=== PATIENT | female | born 1955 | race Caucasian/White ===

== ENCOUNTER → 2016-08-24 | Outpatient (CLI) | payer OTHER | LOC: WI 14:09 | PROVIDERS: ATTEND Internal Medicine | DX: C50.411 Malignant neoplasm of upper-outer quadrant of right female breast (principal) | CPT/HCPCS: 76642; G0206 ==

== ENCOUNTER 2016-12-25 23:03 | Emergency (ER) | payer OTHER ==
[2016-12-26 01:14] LABS: VENOUS BLOOD BASE EXCESS 0.7 mmol/L; VENOUS BLOOD HCO3 27.3 mmol/L (20-32); VENOUS BLOOD PCO2 51.2 mmHg (35-63); VENOUS BLOOD PH 7.34 (7.30-7.42)
[2016-12-26] MEDS ORDERED: NORMAL SALINE 1000 ML 1,000 ML IV ONE (01:16)
[2016-12-26] MEDS ORDERED: INSULIN LISPRO 100 UNIT/ML 3 ML VIAL SUBCUT ONE (01:16)
[2016-12-26 01:20] LABS: ABSOLUTE BASOPHILS # (AUTO) 0.1 10^3/uL (0.0-0.2); ABSOLUTE EOSINOPHILS # (AUTO) 0.2 10^3/uL (0.0-0.6); ABSOLUTE LYMPHOCYTES (AUTO) 4.1 10^3/uL (0.5-4.7); ABSOLUTE MONOCYTES (AUTO) 0.7 10^3/uL (0.1-1.4); BASOPHILS % (AUTO) 0.8 % (0-2); EOSINOPHILS % (AUTO) 2.1 % (0-6); HEMATOCRIT 41.4 % (36.0-47.0); HEMOGLOBIN 14.5 g/dL (12.0-15.5); HGB HCT DIFFERENCE 2.1; LYMPHOCYTES % (AUTO) 44.9 % (13-45); MEAN CORPUSCULAR HEMOGLOBIN 33.1 pg (27.0-33.4); MEAN CORPUSCULAR VOLUME 95 fl (80-97); MONOCYTES % (AUTO) 7.9 % (3-13); RED BLOOD COUNT 4.37 10^6/uL (3.72-5.28); RED CELL DISTRIBUTION WIDTH 12.9 % (11.5-14.0); SEGMENTED NEUTROPHILS % (AUTO) 44.3 % (42-78); WHITE BLOOD COUNT 9.1 10^3/uL (4.0-10.5)
[2016-12-26 01:21] LABS: APPEARANCE,URINE CLEAR; BILIRUBIN,URINE NEGATIVE (NEGATIVE); GLUCOSE, URINE >=500 mg/dL (NEGATIVE); KETONES,URINE NEGATIVE (NEGATIVE); LEUKOCYTE ESTERASE,URINE NEGATIVE (NEGATIVE); NITRITE,URINE NEGATIVE (NEGATIVE); PROTEIN,URINE NEGATIVE (NEGATIVE); URINE SPECIFIC GRAVITY 1.007; UROBILINOGEN,URINE NEGATIVE mg/dL (<2.0)
[2016-12-26 01:28] LABS: ANION GAP 14 (5-19); BLOOD UREA NITROGEN 14 mg/dL (7-20); CALCIUM 10.1 mg/dL (8.4-10.2); CARBON DIOXIDE 26 mmol/L (22-30); CHLORIDE 103 mmol/L (98-107); CREATININE RESULT 0.76 mg/dL (0.52-1.25); GLUCOSE 376 mg/dL (75-110); POTASSIUM 3.7 mmol/L (3.6-5.0); SODIUM 142.5 mmol/L (137-145)
--- NOTE | 2016-12-26 01:32 | ER Document Report ---
ED General - General Chief Complaint: High Blood Sugar Stated Complaint: BLOOD SUGAR PROBLEM Time Seen by Provider: 12/26/16 00:22 Notes: Patient is a 61-year-old female with a past medical history of insulin- dependent type 2 diabetes who presents with concerns about elevated blood sugars at home. Patient reports that her blood sugars have been higher than 500 for the past 2 days. She was seen by her primary care doctor yesterday who is apparently planning on transitioning her from Victoza to NovoLog and glipizide but has not yet made this change. Patient reports polyuria and polydipsia as well as generalized fatigue for the past 1 month. She has not noted that anything seems to improve or worsen her symptoms. She has never had diabetic ketoacidosis or required admission to the hospital for her diabetes. She denies any chest pain or infectious symptoms. TRAVEL OUTSIDE OF THE [place] IN LAST 30 DAYS: No - Related Data Allergies/Adverse Reactions: No Known Allergies Allergy (Verified 12/25/16 23:35) Past Medical History - General Information source: Patient - Social History Smoking Status: Never Smoker Frequency of alcohol use: None Drug Abuse: None Lives with: Spouse/Significant other Family History: Reviewed & Not Pertinent - Past Medical History Cardiac Medical History: Reports: Hx Coronary Artery Disease - cholesterol, Hx Hypercholesterolemia, Hx Hypertension Pulmonary Medical History: Reports: Hx Asthma, Hx Bronchitis - 2 yrs ago, Hx Pneumonia - x2, last time 2009 Neurological Medical History: Reports: Hx Migraine, Hx Seizures - None for 3 yrs Endocrine Medical History: Reports: Hx Diabetes Mellitus Type 2 Renal/ Medical History: Denies: Hx Peritoneal Dialysis Psychiatric Medical History: Reports: Hx Depression Past Surgical History: Reports: Hx Breast Surgery - RIGHT, Hx Cardiac Catheterization, Hx Cholecystectomy, Hx Hysterectomy, Hx Orthopedic Surgery - NECK - Immunizations Immunizations up to date: Yes Hx Diphtheria, Pertussis, Tetanus Vaccination: Yes - Tetanus only 2009 Review of Systems - Review of Systems Notes: Constitutional: Negative for fever. HENT: Negative for sore throat. Eyes: Negative for visual changes. Cardiovascular: Negative for chest pain. Respiratory: Negative for shortness of breath. Gastrointestinal: Negative for abdominal pain, vomiting or diarrhea. Genitourinary: Negative for dysuria. Musculoskeletal: Negative for back pain. Skin: Negative for rash. Neurological: Negative for headaches, weakness or numbness. 10 point ROS negative except as marked above and in HPI. Physical Exam - Vital signs Vitals: Temp Pulse Resp BP Pulse Ox 98.4 F 111 H 20 142/68 H 98 12/25/16 23:35 12/25/16 23:35 12/25/16 23:35 12/25/16 23:35 12/25/16 23:35 Interpretation: Tachycardic Notes: PHYSICAL EXAMINATION: GENERAL: Well-appearing, well-nourished and in no acute distress. HEAD: Atraumatic, normocephalic. EYES: Pupils equal round and reactive to light, extraocular movements intact, sclera anicteric, conjunctiva are normal. ENT: nares patent, oropharynx clear without exudates. Moderately dry mucous membranes. NECK: Normal range of motion, supple without lymphadenopathy LUNGS: Breath sounds clear to auscultation bilaterally and equal. No wheezes rales or rhonchi. HEART: Regular rate and rhythm without murmurs ABDOMEN: Soft, nontender, normoactive bowel sounds. No guarding, no rebound. No masses appreciated. EXTREMITIES: Normal range of motion, no pitting or edema. No cyanosis. NEUROLOGICAL: No focal neurological deficits. Moves all extremities spontaneously and on command. PSYCH: Normal mood, normal affect. SKIN: Warm, Dry, normal turgor, no rashes or lesions noted. Course - Re-evaluation Re-evalutation: 12/26/16 01:31 Presentation of asymptomatic hyperglycemia. There is no evidence of HHS or diabetic ketoacidosis on laboratories or based on clinical history. Patient's vitals are within normal limits. They deny any acute focal complaints. Treatment with insulin and IV fluids given here in the emergency department with appropriate response of the blood sugar. Patient does have primary care follow-up. Patient was instructed to continue taking their metformin and advised they will likely need to increase dietary modification and may also need medication changes. Indications to return to emergency department as well as the importance of close outpatient follow-up were discussed at length. Patient verbalized understanding of the need for close follow-up and indications to return to the ED. - Vital Signs Vital signs: Temp Pulse Resp BP Pulse Ox 97.5 F 111 H 18 153/96 H 98 12/26/16 02:28 12/25/16 23:35 12/26/16 02:23 12/26/16 02:23 12/26/16 02:23 - Laboratory Result Diagrams: 12/26/16 00:58 12/26/16 00:58 Laboratory results interpreted by me: 12/26/16 12/26/16 00:58 00:58 Glucose 376 H Urine Glucose (UA) >=500 H Discharge - Discharge Clinical Impression: Hyperglycemia, Nausea Condition: Good Disposition: HOME, SELF-CARE Additional Instructions: You need to followup urgently with your primary care doctor as your blood sugars were dangerously high today. You did not have any evidence of a dangerous condition associated with these blood sugars at this time. However, it is very important that you get your blood sugars under control. Please take all of your medications exactly as directed. You should avoid foods that are high in carbohydrates and sugary foods. Please return to emergency department immediately if you develop weakness, persistent vomiting, confusion, or any other symptoms that are concerning to you. Prescriptions: Glipizide 5 mg PO DAILY #30 tablet Referrals: JASMIN FOUNTAIN MD [Primary Care Provider] - Follow up as needed
[2016-12-26] MEDS ORDERED: GLIPIZIDE 5 MG TABLET PO ONE (02:07)
[2016-12-26 02:28] VITALS: BP 153/96
== END 2016-12-26 02:28 | disposition home or self-care (01) ==
LOC: ER 23:03
DX: E11.65 Type 2 diabetes mellitus with hyperglycemia (principal); R11.0 Nausea; Z79.899 Other long term (current) drug therapy; Z79.4 Long term (current) use of insulin
CPT/HCPCS: 99285; 36415; 82962; 85025; 80048; 81001; 82803; J1815

== ENCOUNTER → 2017-03-01 | Outpatient (CLI) | payer OTHER ==
--- NOTE | 2017-03-01 15:37 | WOMENS IMAGING REPORT ---
EXAM DESCRIPTION: BONE DENSITY HIP/SPINE COMPLETED DATE/TIME: 03/01/2017 8:27 am REASON FOR STUDY: AGE-RELATED OSTEOPROSIS; M81.0 M81.0 AGE-RELATED OSTEOPOROSIS W/O CURRENT PATHOLO [facility] COMPARISON: 2012, 2014 TECHNIQUE: Dual-Energy X-ray Absorptiometry (DEXA) of the AP Spine and Hip. LIMITATIONS: None. FINDINGS: LUMBAR SPINE: The bone mineral density (BMD) measured from L1-L4 in the AP projection correlates with a T-score of 0.6, which is normal as defined by the World Health Organization. HIP: The bone mineral density (BMD) measured in the left hip correlates with a T-score of -1.1, which is o steopenia as defined by the World Health Organization. IMPRESSION: 1. LUMBAR SPINE: NORMAL. 2. HIP: OSTEOPENIA. Improved over previous. COMMENT: The World Health Organization defines low BMD as follows: T-score: Normal: Greater than -1.0 Osteopenia: Between -1.0 and -2.5 Osteoporosis: Less than -2.5 without fractures Established osteoporosis: Less than -2.5 with fractures In general, you may wish to consider: Diagnosis Treatment Follow-up DEXA Normal BMD Prevention 2-3 years Osteopenia Prevention/Therapy 1-2 years Osteoporosis Therapy Yearly TECHNICAL DOCUMENTATION: JOB ID: [id number]- All Rights Reserved
== END ==
LOC: WI 08:06
PROVIDERS: ATTEND Internal Medicine
DX: M81.0 Age-related osteoporosis without current pathological fracture (principal)
CPT/HCPCS: 77080

== ENCOUNTER 2017-05-12 03:38 | Emergency (ER) | payer BC, OTHER ==
[2017-05-12 04:40] LABS: ABSOLUTE EOSINOPHILS # (AUTO) 0.3 10^3/uL (0.0-0.6); ABSOLUTE LYMPHOCYTES (AUTO) 3.1 10^3/uL (0.5-4.7); ABSOLUTE MONOCYTES (AUTO) 0.9 10^3/uL (0.1-1.4); ABSOLUTE NEUT (AUTO) 5.1 10^3/uL (1.7-8.2); BASOPHILS % (AUTO) 0.2 % (0-2); HEMATOCRIT 43.3 % (36.0-47.0); HEMOGLOBIN 14.8 g/dL (12.0-15.5); LYMPHOCYTES % (AUTO) 32.6 % (13-45); MEAN CORPUSCULAR HEMOGLOBIN 32.6 pg (27.0-33.4); MEAN CORPUSCULAR HGB CONC 34.2 g/dL (32.0-36.0); MEAN CORPUSCULAR VOLUME 95 fl (80-97); MONOCYTES % (AUTO) 9.8 % (3-13); PLATELET COUNT 245 10^3/uL (150-450); RED BLOOD COUNT 4.55 10^6/uL (3.72-5.28); RED CELL DISTRIBUTION WIDTH 12.9 % (11.5-14.0); SEGMENTED NEUTROPHILS % (AUTO) 54.4 % (42-78); TOTAL CELLS COUNTED % (AUTO) 100 %; WHITE BLOOD COUNT 9.4 10^3/uL (4.0-10.5)
[2017-05-12] MEDS ORDERED: ONDANSETRON HCL INJ/PF 4 MG/2 ML SDV IV ONE (04:43)
[2017-05-12] MEDS ORDERED: NORMAL SALINE 1000 ML 1,000 ML IV ONE (04:43)
[2017-05-12] MEDS ORDERED: MORPHINE SULFATE 10 MG/ML INJ IV ONE ×2 (04:43→05:44)
--- NOTE | 2017-05-12 04:46 | ER Document Report ---
Doctor's Note Notes: 05/12/17 04:45 I performed a quick triage evaluation the patient. Patient is a pleasant 31- year-old female presents with complaint of abdominal pain. Says abdominal pain is been there since yesterday. Denies any fevers. She says some nausea but no vomiting. No diarrhea. No blood in her stool. Pain is mostly over the lower portions of her abdomen. Previous abdominal surgeries include cholecystectomy and appendectomy. She does have a history of breast cancer but has been cancer free for a long time. Last colonoscopy was a year and a half ago and showed no concerning findings. She does have a previous history of diverticulitis. She says she has never had pain similar to this before. No associated chest pain or shortness of breath. On exam she is tender over the entire abdomen is worse in the low portions of the abdomen. No rebound. Mild guarding. Blood work is been ordered in triage. I ordered a CT scan as well. She is little tachycardic and therefore I will give her some fluids and pain medicine. Lactic acid has been ordered. 05/12/17 04:46 05/12/17 05:45 Reevaluation patient's pain is a little bit improved with the morphine but she still has significant amount of pain. Abdomen still soft. Lab work is back and CT scan has been ordered. I will the patient will be more morphine to help get better control of her pain. Her heart rate is improving. Heart rate is now in the 90s. Blood pressure is normal. Dictation of this chart was performed using voice recognition software; therefore, there may be some unintended grammatical errors.
[2017-05-12] MEDS ORDERED: MORPHINE SULFATE 10 MG/ML INJ ONE (04:47)
[2017-05-12] MEDS ORDERED: ONDANSETRON HCL INJ/PF 4 MG/2 ML SDV ONE (04:47)
[2017-05-12 05:00] LABS: ALANINE AMINOTRANSFERASE 101 U/L (9-52); ALBUMIN 4.5 g/dL (3.5-5.0); ALKALINE PHOSPHATASE 208 U/L (38-126); ANION GAP 12 (5-19); ASPARTATE AMINO TRANSFERASE 113 U/L (14-36); BILIRUBIN,DIRECT 0.5 mg/dL (0.0-0.4); BILIRUBIN,TOTAL 0.7 mg/dL (0.2-1.3); BLOOD UREA NITROGEN 11 mg/dL (7-20); CALCIUM 9.7 mg/dL (8.4-10.2); CARBON DIOXIDE 26 mmol/L (22-30); CHLORIDE 103 mmol/L (98-107); LIPASE 102.9 U/L (23-300); POTASSIUM 4.3 mmol/L (3.6-5.0); TOTAL PROTEIN 7.2 g/dL (6.3-8.2)
[2017-05-12 05:10] LABS: GLUCOSE 472 mg/dL (75-110)
--- NOTE | 2017-05-12 05:15 | RADIOLOGY REPORT (SQ) ---
EXAM DESCRIPTION: CHEST SINGLE VIEW COMPLETED DATE/TIME: 05/12/2017 5:06 am REASON FOR STUDY: abdominal pain, get entire diaphragm COMPARISON: Chest x-ray 08/09/2015. EXAM PARAMETERS: NUMBER OF VIEWS: One view. TECHNIQUE: Single frontal radiographic view of the chest acquired. RADIATION DOSE: NA LIMITATIONS: None. FINDINGS: LUNGS AND PLEURA: No consolidation, pneumothorax or pleural effusion. MEDIASTINUM AND HILAR STRUCTURES: No masses. Contour normal. HEART AND VASCULAR STRUCTURES: Heart normal in size. Normal vasculature. BONES: Degenerative changes in the spine. HARDWARE: There is a monitor and storage bin tender overlying the left hemithorax. Partially visualized orthopedic hardware at the lower cervical spine. IMPRESSION: No acute radiographic finding in the chest. TECHNICAL DOCUMENTATION: JOB ID: [id number] [place]-64 2010 [employer]- All Rights Reserved
[2017-05-12 05:42] LABS: APPEARANCE,URINE CLEAR; BILIRUBIN,URINE NEGATIVE (NEGATIVE); COLOR,URINE YELLOW; GLUCOSE, URINE >=500 mg/dL (NEGATIVE); KETONES,URINE NEGATIVE (NEGATIVE); LEUKOCYTE ESTERASE,URINE NEGATIVE (NEGATIVE); NITRITE,URINE NEGATIVE (NEGATIVE); PROTEIN,URINE NEGATIVE (NEGATIVE); URINE SPECIFIC GRAVITY 1.036; UROBILINOGEN,URINE NEGATIVE mg/dL (<2.0)
--- NOTE | 2017-05-12 06:04 | RADIOLOGY REPORT (SQ) ---
EXAM DESCRIPTION: CT ABD/PELVIS WITH IV ONLY COMPLETED DATE/TIME: 05/12/2017 5:46 am REASON FOR STUDY: abdominal pain COMPARISON: CT abdomen and pelvis 12/19/2014. TECHNIQUE: CT scan of the abdomen and pelvis performed using helical scanning technique with dynamic intravenous contrast injection. No oral contrast. Images reviewed with lung, soft tissue, and bone windows. Reconstructed coronal and sagittal MPR images reviewed. Delayed images for evaluation of the urinary system also acquired. All images stored on PACS. All CT scanners at this facility use dose modulation, iterative reconstruction, and/or weight based d osing when appropriate to reduce radiation dose to as low as reasonably achievable (ALARA). [facility]: Dose Right [facility]: CareDose [facility]: Dose Right [facility]: Teradose 4D [facility]: [facility] CONTRAST TYPE AND DOSE: contrast/concentration: Isovue 370.00 mg/ml; Total Contrast Delivered: 84.0 ml; Total Saline Delivered: 49.0 ml RENAL FUNCTION: Creatinine 0.70 RADIATION DOSE: CT Rad equipment meets quality standard of care and radiation dose reduction techniq ues were employed. CTDIvol: 10.9 mGy. DLP: 1156 mGy-cm.. LIMITATIONS: None. FINDINGS: LOWER CHEST: No consolidation or pleural effusion. LIVER: The liver is enlarged measuring 19.7 cm in craniocaudal dimension. Diffuse decreased attenuat ion, most consistent with fatty infiltration. No masses. SPLEEN: Normal size. PANCREAS: No significant calcifications. No adjacent inflammation or peripancreatic fluid collections . Pancreatic duct not dilated. GALLBLADDER: Surgically absent. There is mild dilation of the common bile duct status post remote ch olecystectomy. ADRENAL GLANDS: No significant masses or asymmetry. RIGHT KIDNEY AND URETER: No solid masses. No significant calcifications. No hydronephrosis or hyd roureter. LEFT KIDNEY AND URETER: No solid masses. No significant calcifications. No hydronephrosis or hydr oureter. AORTA AND VESSELS: No abdominal aortic aneurysm. RETROPERITONEUM: No retroperitoneal adenopathy, hemorrhage or masses. BOWEL AND PERITONEAL CAVITY: No dilated bowel loops or inflammatory changes. No free fluid or free ai r. Scattered diverticula at the colon with no CT evidence for acute diverticulitis. APPENDIX: Normal. PELVIS: The urinary bladder is decompressed. The uterus is surgically absent. No free fluid. ABDOMINAL WALL: No hernias. BONES: Degenerative changes in the spine. IMPRESSION: 1. No acute findings. 2. Hepatomegaly. Fatty infiltration of the liver. 3. Mild colonic diverticulosis. TECHNICAL DOCUMENTATION: JOB ID: [id number] [place]- Quality ID # [id number]: Final reports with documentation of one or more dose reduction techniques (e.g., Au tomated exposure control, adjustment of the mA and/or kV according to patient size, use of iterative reconstruction technique) 2010 [employer]- All Rights Reserved
[2017-05-12] MEDS ORDERED: NORMAL SALINE 500 ML IV ONE (06:30)
[2017-05-12] MEDS ORDERED: KETOROLAC TROMETHAMINE INJ/PF 30 MG/1 ML SDV IV ONE (07:06)
[2017-05-12 07:18] LABS: A TYPE INFLUENZA AG NEGATIVE (NEGATIVE); B INFLUENZA AG NEGATIVE (NEGATIVE)
[2017-05-12] MEDS ORDERED: METRONIDAZOLE 500 MG TABLET PO ONE (07:33)
[2017-05-12] MEDS ORDERED: CIPROFLOXACIN HCL 500 MG TABLET PO ONE (07:33)
--- NOTE | 2017-05-12 09:13 | ER Document Report ---
ED General - General Chief Complaint: Abdominal Pain Stated Complaint: ABDOMINAL PAIN Time Seen by Provider: 05/12/17 04:42 TRAVEL OUTSIDE OF THE [place] IN LAST 30 DAYS: No - HPI Patient complains to provider of: Left lower quadrant abdominal pain Notes: Patient with left lower quadrant abdominal pain ongoing since Wednesday. Patient denies any fevers or chills that she was nauseous. Patient denies a history of diverticulitis in the past. Upon initial triage patient was found to be very tachycardic. Patient denies any trauma to the area no recent antibiotics. Upon my evaluation patient had received IV fluids with improvement of her heart rate. Patient states pain has improved. No diarrhea no bloody stools. Pain worse with palpation and movement according to the patient - Related Data Allergies/Adverse Reactions: No Known Allergies Allergy (Verified 05/12/17 03:39) Past Medical History - Social History Smoking Status: Never Smoker Chew tobacco use (# tins/day): No Frequency of alcohol use: None Drug Abuse: None Family History: Reviewed & Not Pertinent Patient has suicidal ideation: No Patient has homicidal ideation: No - Past Medical History Cardiac Medical History: Reports: Hx Coronary Artery Disease - cholesterol, Hx Hypercholesterolemia, Hx Hypertension Pulmonary Medical History: Reports: Hx Asthma, Hx Bronchitis - 2 yrs ago, Hx Pneumonia - x2, last time 2009 Neurological Medical History: Reports: Hx Migraine, Hx Seizures - None for 3 yrs Endocrine Medical History: Reports: Hx Diabetes Mellitus Type 2 Renal/ Medical History: Denies: Hx Peritoneal Dialysis Psychiatric Medical History: Reports: Hx Depression Past Surgical History: Reports: Hx Breast Surgery - RIGHT, Hx Cardiac Catheterization, Hx Cholecystectomy, Hx Hysterectomy, Hx Orthopedic Surgery - NECK - Immunizations Immunizations up to date: Yes Hx Diphtheria, Pertussis, Tetanus Vaccination: Yes - Tetanus only 2009 Review of Systems - Review of Systems Constitutional: No symptoms reported EENT: No symptoms reported Cardiovascular: No symptoms reported Respiratory: No symptoms reported Gastrointestinal: Abdominal pain, Nausea Genitourinary: No symptoms reported Female Genitourinary: No symptoms reported Musculoskeletal: No symptoms reported Skin: No symptoms reported Hematologic/Lymphatic: No symptoms reported Neurological/Psychological: No symptoms reported -: Yes All other systems reviewed and negative Physical Exam - Vital signs Vitals: Temp Pulse Resp BP Pulse Ox 98.3 F 126 H 18 128/76 H 96 05/12/17 03:43 05/12/17 03:43 05/12/17 03:43 05/12/17 03:43 05/12/17 03:43 Interpretation: Normal - General General appearance: Appears well, Alert - HEENT Head: Normocephalic, Atraumatic Eyes: Normal Pupils: PERRL - Respiratory Respiratory status: No respiratory distress Chest status: Nontender Breath sounds: Normal Chest palpation: Normal - Cardiovascular Rhythm: Regular Heart sounds: Normal auscultation Murmur: No - Abdominal Inspection: Normal Distension: No distension Bowel sounds: Normal Tenderness: Tender - Mild to moderate pain to palpation left lower quadrant no guarding or rebound Organomegaly: No organomegaly - Back Back: Normal, Nontender - Extremities General upper extremity: Normal inspection, Nontender, Normal color, Normal ROM , Normal temperature General lower extremity: Normal inspection, Nontender, Normal color, Normal ROM , Normal temperature, Normal weight bearing. No: Hima's sign - Neurological Neuro grossly intact: Yes Cognition: Normal Orientation: AAOx4 Satnam Coma Scale Eye Opening: Spontaneous Sat[place] Coma Scale Verbal: Oriented Satnam Coma Scale Motor: Obeys Commands Satnam Coma Scale Total: 15 Speech: Normal Motor strength normal: LUE, RUE, LLE, RLE Sensory: Normal - Psychological Associated symptoms: Normal affect, Normal mood - Skin Skin Temperature: Warm Skin Moisture: Dry Skin Color: Normal Course - Re-evaluation Re-evalutation: 05/12/17 15:36 Patient was noted to be on Tamiflu. Laboratory studies not show elevated blood glucose. CAT scan showed scattered diverticulosis noted signs of overt diverticulitis however clinical examination with tenderness left lower quadrant and tachycardia concerning for underlying diverticular disease. Will start patient on Cipro Flagyl. Patient is to follow-up with her primary care physician. - Vital Signs Vital signs: Temp Pulse Resp BP Pulse Ox 98.3 F 126 H 13 101/60 94 05/12/17 03:43 05/12/17 03:43 05/12/17 09:30 05/12/17 09:30 05/12/17 09:30 - Laboratory Result Diagrams: 05/12/17 04:22 05/12/17 04:22 Laboratory results interpreted by me: 05/12/17 05/12/17 05/12/17 04:22 04:22 04:50 Glucose 472 H* Lactic Acid 2.3 H Direct Bilirubin 0.5 H AST 113 H ALT 101 H Alkaline Phosphatase 208 H Urine Glucose (UA) >=500 H Discharge - Discharge Clinical Impression: Diverticulitis Condition: Fair Disposition: HOME, SELF-CARE Instructions: Clear Liquid Diet ([facility]), Diverticulitis ([facility]), Low Residue Diet ( [facility]) Additional Instructions: Your laboratory values today do not show any significant pathology. I do believe the pain in her stomach may be due to a flare of diverticulitis or inflammation of the stomach. A CAT scan does show diverticulosis but no signs of overt inflammation or abscess. I would recommend to continue the antibiotics that we gave you here in the ER. Also I will prescribe you nausea medication pain medication. Please follow-up with your primary care physician next 3-5 days. Return to ER symptoms worsen. Please make sure you are drinking plenty of fluids. I recommend a clear liquid diet for the next 12 hours and advance as tolerated to a low residue diet Prescriptions: Ciprofloxacin HCl [Cipro 500 mg Tablet] 500 mg PO BID #20 tablet Metoclopramide HCl [Reglan] 5 mg PO Q6 #30 tablet Metronidazole [Flagyl 500 mg Tablet] 500 mg PO TID #30 tablet Tramadol HCl [Ultram 50 mg Tablet] 50 mg PO ASDIR PRN #20 tablet PRN Reason: Forms: Return to Work
[2017-05-12 09:45] VITALS: BP 101/60
== END 2017-05-12 09:45 | disposition home or self-care (01) ==
LOC: ER 03:38
DX: K57.92 Diverticulitis of intestine, part unspecified, without perforation or abscess without bleeding (principal); R10.32 Left lower quadrant pain; R11.0 Nausea; R00.0 Tachycardia, unspecified
CPT/HCPCS: 96376; 99284; 96361; 96374; 96375; 36415; 83605; 83690; 85025; 80053; 81001; 87804; 71045; 74177; J1885; J2270; J2405; J7030; J7040

== ENCOUNTER → 2017-09-02 | Outpatient (CLI) | payer BC ==
--- NOTE | 2017-09-03 13:45 | WOMENS IMAGING REPORT ---
EXAM DESCRIPTION: 3D SCREENING MAMMO LEFT COMPLETED DATE/TIME: 09/02/2017 10:43 am REASON FOR STUDY: BREAST CANCER C50.411 MALIG NEOPLM OF UPPER-OUTER QUADRANT OF RIGHT FEMALE COMPARISON: [id number] TECHNIQUE: Standard craniocaudal and mediolateral oblique views of the breast recorded using digital acquisition and breast tomosynthesis. LIMITATIONS: library monitor. FINDINGS: BREAST: left No masses, calcifications or architectural distortion. No areas of suspicion. Read with the assistance of CAD. .[facility] - R2 Cenova Version 1.3 .[facility] - R2 Cenova Version 1.3 .[facility] - R2 Cenova Version 2.4 .[facility] - R2 Cenova Version 2.4 .[facility] - R2 Program Management Specialist Version 9.2 IMPRESSION: NORMAL MAMMOGRAM. BIRADS 1. BREAST DENSITY: b. There are scattered areas of fibroglandular density. BIRAD: 1 Negative RECOMMENDATION: RECOMMENDATION: ROUTINE SCREENING. COMMENT: The patient has been notified of the results by letter per SA requirements. Additional no tification policies are in place for contacting patient with suspicious or incomplete findings. Quality ID #225: The [employer] recommends an annual screening mammogram for women aged 40 years or over. This facility utilizes a reminder system to ensure that all patients receive reminder letters, and/or direct phone calls for appointments. This includes reminders for routine scr eening mammograms, diagnostic mammograms, or other Breast Imaging Interventions when appropriate. Th is patient will be placed in the appropriate reminder system. The [employer] (ACR) has developed recommendations for screening MRI of the breast s in certain patient populations, to be used in conjunction with mammography. Breast MRI surveillance may be appropriate for women with more than 20% lifetime risk of developing breast cancer as determi rosa elena by genetic testing, significant family history of the disease, or history of mantle radiation for Hodgkins Disease. ACR Practice Guidelines 2008. DBT Technology DBT is a type of tomographic mammography. With conventional mammography, overlapping breast tissue ma y make lesions difficult to detect, even with good compression. DBT uses an x-ray tube that rotates a round the breast, taking images at different angles. These images are then combined to create thin sl ices of the breast that the radiologist can view as a 3D reconstruction. The [employer] unit can perform full-field digital mammograms (2D imaging); or DBT (3D imaging); or both, in a combination mode that quickly performs both the mammogram and the tomosynthesis scan while the breast is still compressed. PQRS 6045F: Fluoroscopic imaging is not utilized for breast tomosynthesis. TECHNICAL DOCUMENTATION: FINDING NUMBER: (1) ASSESSMENT: (1) JOB ID: [id number] [employer]- All Rights Reserved Reading location - IP/workstation name: [email or web address]
== END ==
LOC: WI 09:59
PROVIDERS: ATTEND Internal Medicine
DX: C50.411 Malignant neoplasm of upper-outer quadrant of right female breast (principal)

== ENCOUNTER → 2018-01-04 | Outpatient (CLI) | payer BC ==
--- NOTE | 2018-01-04 10:04 | WOMENS IMAGING REPORT ---
EXAM DESCRIPTION: LEFT DIAGNOSTIC MAMMO W/CAD; U/S BREAST UNILAT LIMITED COMPLETED DATE/TIME: 01/04/2018 9:09 am; 01/04/2018 9:43 am REASON FOR STUDY: LEFT BREAST PAIN N64.4 MASTODYNIA COMPARISON: 09/02/2017 TECHNIQUE: Standard craniocaudal and mediolateral oblique images of the breast recorded with digital acquisition. True lateral view LIMITATIONS: Cardiac loop monitor. FINDINGS: BREAST: left MASSES: No suspicious masses. CALCIFICATIONS: No new or suspicious calcifications. ARCHITECTURAL DISTORTION: None. DEVELOPING DENSITY: None. ASYMMETRY: None noted. OTHER: No other significant findings. Read with the assistance of CAD. .[facility] - R2 Cenova Version 1.3 .[facility] Imaging - R2 Cenova Version 1.3 .[facility] Imaging - R2 Cenova Version 2.4 .[facility] - R2 Cenova Version 2.4 .[facility] - R2 Casino Surveillance Officer Version 9.2 Ultrasound of the left breast was normal. IMPRESSION: No evidence of malignancy. BREAST DENSITY: b. There are scattered areas of fibroglandular density. BIRAD: 1 Negative. RECOMMENDATION: RECOMMENDED FOLLOW UP: Clinical followup. SPECIFIC INTERVENTION/IMAGING/CONSULTATION RECOMMENDED:No additional intervention/ imaging/consultati on needed at this time. COMMUNICATION:The negative/benign results were communicated to the patient. COMMENT: The patient has been notified of the results by letter per SA requirements. Additional no tification policies are in place for contacting patient with suspicious or incomplete findings. Quality ID #225: The [employer] recommends an annual screening mammogram for women aged 40 years or over. This facility utilizes a reminder system to ensure that all patients receive reminder letters, and/or direct phone calls for appointments. This includes reminders for routine scr eening mammograms, diagnostic mammograms, or other Breast Imaging Interventions when appropriate. Th is patient will be placed in the appropriate reminder system. The [employer] (ACR) has developed recommendations for screening MRI of the breast s in certain patient populations, to be used in conjunction with mammography. Breast MRI surveillanc e may be appropriate for women with more than 20% lifetime risk of developing breast cancer as deter mined by genetic testing, significant family history of the disease, or history of mantle radiation f or Hodgkins Disease. ACR Practice Guidelines 2008. TECHNICAL DOCUMENTATION: FINDING NUMBER: (1) ASSESSMENT: (1) JOB ID: [id number] [employer]- All Rights Reserved Reading location - IP/workstation name: [email or web address]
--- NOTE | 2018-01-04 10:04 | WOMENS IMAGING REPORT ---
EXAM DESCRIPTION: LEFT DIAGNOSTIC MAMMO W/CAD; U/S BREAST UNILAT LIMITED COMPLETED DATE/TIME: 01/04/2018 9:09 am; 01/04/2018 9:43 am REASON FOR STUDY: LEFT BREAST PAIN N64.4 MASTODYNIA COMPARISON: 09/02/2017 TECHNIQUE: Standard craniocaudal and mediolateral oblique images of the breast recorded with digital acquisition. True lateral view LIMITATIONS: Cardiac loop monitor. FINDINGS: BREAST: left MASSES: No suspicious masses. CALCIFICATIONS: No new or suspicious calcifications. ARCHITECTURAL DISTORTION: None. DEVELOPING DENSITY: None. ASYMMETRY: None noted. OTHER: No other significant findings. Read with the assistance of CAD. .[facility] - R2 Cenova Version 1.3 .[facility] Imaging - R2 Cenova Version 1.3 .[facility] Imaging - R2 Cenova Version 2.4 .[facility] [place] R2 Cenova Version 2.4 .[facility] - R2 Crystal Grinder Version 9.2 Ultrasound of the left breast was normal. IMPRESSION: No evidence of malignancy. BREAST DENSITY: b. There are scattered areas of fibroglandular density. BIRAD: 1 Negative. RECOMMENDATION: RECOMMENDED FOLLOW UP: Clinical followup. SPECIFIC INTERVENTION/IMAGING/CONSULTATION RECOMMENDED:No additional intervention/ imaging/consultati on needed at this time. COMMUNICATION:The negative/benign results were communicated to the patient. COMMENT: The patient has been notified of the results by letter per SA requirements. Additional no tification policies are in place for contacting patient with suspicious or incomplete findings. Quality ID #225: The [employer] recommends an annual screening mammogram for women aged 40 years or over. This facility utilizes a reminder system to ensure that all patients receive reminder letters, and/or direct phone calls for appointments. This includes reminders for routine scr eening mammograms, diagnostic mammograms, or other Breast Imaging Interventions when appropriate. Th is patient will be placed in the appropriate reminder system. The [employer] (ACR) has developed recommendations for screening MRI of the breast s in certain patient populations, to be used in conjunction with mammography. Breast MRI surveillanc e may be appropriate for women with more than 20% lifetime risk of developing breast cancer as deter mined by genetic testing, significant family history of the disease, or history of mantle radiation f or Hodgkins Disease. ACR Practice Guidelines 2008. TECHNICAL DOCUMENTATION: FINDING NUMBER: (1) ASSESSMENT: (1) JOB ID: [id number] [employer] All Rights Reserved Reading location - IP/workstation name: [email or web address]
== END ==
LOC: WI 08:41
PROVIDERS: ATTEND Physician Assistant Medical
DX: N64.4 Mastodynia (principal)
CPT/HCPCS: 76642

== ENCOUNTER → 2018-09-06 | Outpatient (CLI) | payer BC ==
--- NOTE | 2018-09-06 17:07 | WOMENS IMAGING REPORT ---
EXAM DESCRIPTION: 3D SCREENING MAMMO LEFT COMPLETED DATE/TIME: 09/06/2018 8:38 am REASON FOR STUDY: UNILATERAL ROUTINE SCREENING;Z12.31 Z12.31 ENCNTR SCREEN MAMMOGRAM FOR MALIGNANT NEOPLASM OF ELENA COMPARISON: [id number] EXAM PARAMETERS: Standard craniocaudal and mediolateral oblique views of the breast recorded using d igital acquisition and breast tomosynthesis. Read with the assistance of CAD. .[employer] - R2 Photovoltaic Solar Cell Designer Version 9.2 LIMITATIONS: front desk monitor. FINDINGS: BREAST LATERALITY: left No suspicious masses, suspicious calcifications or architectural distortion. No areas of suspicion. IMPRESSION: ASSESSMENT: NEGATIVE MAMMOGRAM. BIRADS 1. BREAST DENSITY: b. There are scattered areas of fibroglandular density. BIRAD: 1 Negative RECOMMENDATION: RECOMMENDATION: ROUTINE SCREENING. COMMENT: The patient has been notified of the results by letter per SA requirements. Additional no tification policies are in place for contacting patient with suspicious or incomplete findings. Quality ID #225: The [employer] recommends an annual screening mammogram for women aged 40 years or over. This facility utilizes a reminder system to ensure that all patients receive reminder letters, and/or direct phone calls for appointments. This includes reminders for routine scr eening mammograms, diagnostic mammograms, or other Breast Imaging Interventions when appropriate. Th is patient will be placed in the appropriate reminder system. TECHNICAL DOCUMENTATION: FINDING NUMBER: (1) ASSESSMENT: (1) JOB ID: [id number] [employer]- All Rights Reserved Reading location - IP/workstation name: [email or web address]
== END ==
LOC: WI 08:11
PROVIDERS: ATTEND Internal Medicine
DX: Z12.31 Encounter for screening mammogram for malignant neoplasm of breast (principal)

== ENCOUNTER → 2019-03-03 | Outpatient (CLI) | payer BC ==
--- NOTE | 2019-03-03 09:24 | WOMENS IMAGING REPORT ---
EXAM DESCRIPTION: BONE DENSITY HIP/SPINE COMPLETED DATE/TIME: 03/03/2019 8:20 am REASON FOR STUDY: M89.8X9 BONE DENSITY M89.8X9 OTHER SPECIFIED DISORDERS OF BONE, UNSPECIFIED SITE COMPARISON: 03/01/2017. TECHNIQUE: Dual-Energy X-ray Absorptiometry (DEXA) of the AP Spine and Hip. LIMITATIONS: None. FINDINGS: LUMBAR SPINE: The bone mineral density (BMD) measured from L1-L4 in the AP projection correlates with a T-score of 0.7, which is normal as defined by the World Health Organization. BMD Change vs Baseline: 5.2% increase. HIP: The bone mineral density (BMD) measured in the left femoral neck correlates with a T-score of -1.1, w hich is osteopenia as defined by the World Health Organization. BMD Change vs Baseline: 5.7% increase. IMPRESSION: 1. LUMBAR SPINE WHO CLASSIFICATION: NORMAL. 2. HIP WHO CLASSIFICATION: OSTEOPENIA. OVERALL ASSESSMENT: WHO CLASSIFICATION: OSTEOPENIA. COMMENT: The World Health Organization defines low BMD as follows: T-score: Normal: Greater than -1.0 Osteopenia: Between -1.0 and -2.5 Osteoporosis: Less than -2.5 without fractures Established osteoporosis: Less than -2.5 with fractures In general, you may wish to consider: Diagnosis Treatment Follow-up DEXA Normal BMD Prevention 2-3 years Osteopenia Prevention/Therapy 1-2 years Osteoporosis Therapy Yearly TECHNICAL DOCUMENTATION: JOB ID: [id number] [employer]- All Rights Reserved Reading location - IP/workstation name: [email or web address]
== END ==
LOC: WI 07:50
PROVIDERS: ATTEND Internal Medicine
DX: M89.8X9 Other specified disorders of bone, unspecified site (principal)
CPT/HCPCS: 77080

== ENCOUNTER 2019-03-09 02:28 | Emergency (ER) | payer BC ==
[2019-03-09 03:28] LABS: ABSOLUTE BASOPHILS # (AUTO) 0.1 10^3/uL (0.0-0.2); ABSOLUTE EOSINOPHILS # (AUTO) 0.3 10^3/uL (0.0-0.6); ABSOLUTE LYMPHOCYTES (AUTO) 3.5 10^3/uL (0.5-4.7); ABSOLUTE MONOCYTES (AUTO) 0.8 10^3/uL (0.1-1.4); ABSOLUTE NEUT (AUTO) 4.7 10^3/uL (1.7-8.2); BASOPHILS % (AUTO) 1.3 % (0-2); EOSINOPHILS % (AUTO) 2.8 % (0-6); HEMATOCRIT 45.3 % (36.0-47.0); HEMOGLOBIN 15.2 g/dL (12.0-15.5); LYMPHOCYTES % (AUTO) 37.1 % (13-45); MEAN CORPUSCULAR HEMOGLOBIN 31.4 pg (27.0-33.4); MEAN CORPUSCULAR HGB CONC 33.6 g/dL (32.0-36.0); MEAN CORPUSCULAR VOLUME 93 fl (80-97); MONOCYTES % (AUTO) 8.2 % (3-13); PLATELET COUNT 233 10^3/uL (150-450); RED BLOOD COUNT 4.85 10^6/uL (3.72-5.28); SEGMENTED NEUTROPHILS % (AUTO) 50.6 % (42-78); TOTAL CELLS COUNTED % (AUTO) 100 %; WHITE BLOOD COUNT 9.4 10^3/uL (4.0-10.5)
[2019-03-09 03:40] LABS: ALBUMIN 4.4 g/dL (3.5-5.0); ALKALINE PHOSPHATASE 201 U/L (38-126); ANION GAP 11 (5-19); ASPARTATE AMINO TRANSFERASE 23 U/L (14-36); BILIRUBIN,DIRECT 0.1 mg/dL (0.0-0.4); BILIRUBIN,TOTAL 0.5 mg/dL (0.2-1.3); BLOOD UREA NITROGEN 18 mg/dL (7-20); CALCIUM 9.2 mg/dL (8.4-10.2); CARBON DIOXIDE 27 mmol/L (22-30); CHLORIDE 105 mmol/L (98-107); GLUCOSE 222 mg/dL (75-110); POTASSIUM 3.6 mmol/L (3.6-5.0); TOTAL PROTEIN 7.5 g/dL (6.3-8.2)
[2019-03-09] MEDS ORDERED: ONDANSETRON HCL INJ/PF 4 MG/2 ML SDV IV ONE (04:07)
--- NOTE | 2019-03-09 04:15 | RADIOLOGY REPORT (SQ) ---
EXAM DESCRIPTION: XR CHEST 2 VIEWS COMPLETED DATE/TME: 03/09/2019 02:43 CLINICAL HISTORY: 63 years, Female, chest pain COMPARISON: None. NUMBER OF VIEWS: 2 TECHNIQUE: 2 view chest LIMITATIONS: None. FINDINGS: Heart size normal. Postsurgical changes of the cervical spine. Lungs are clear. No pneumothorax IMPRESSION: No acute cardiopulmonary process copyright 2010 [employer]- All Rights Reserved
[2019-03-09 05:13] VITALS: BP 125/94
--- NOTE | 2019-03-10 12:14 | EKG REPORT ---
SEVERITY:- ABNORMAL ECG - SINUS TACHYCARDIA PROBABLE LVH WITH SECONDARY REPOL ABNRM ANTERIOR Q WAVES, POSSIBLY DUE TO LVH : Confirmed by: Dajuan Kaur 10-Mar-2019 12:12:46
== END 2019-03-09 06:03 | disposition left against medical advice (07) ==
LOC: ER 02:28
DX: Z53.21 Procedure and treatment not carried out due to patient leaving prior to being seen by health care provider (principal); R07.9 Chest pain, unspecified
CPT/HCPCS: 36415; 71046; 80053; 84484; 85025; 93005; 93010; 96374; J2405

== ENCOUNTER → 2019-09-11 | Outpatient (CLI) | payer BC, OTHER ==
--- NOTE | 2019-09-11 08:23 | WOMENS IMAGING REPORT ---
EXAM DESCRIPTION: 3D SCREENING MAMMO LEFT IMAGES COMPLETED DATE/TIME: 09/11/2019 8:09 am REASON FOR STUDY: Z12.31 SCREENING MAMMO Z12.31 ENCNTR SCREEN MAMMOGRAM FOR MALIGNANT NEOPLASM OF B RE COMPARISON: 2017 and subsequent. EXAM PARAMETERS: Standard craniocaudal and mediolateral oblique views of the breast recorded using d igital acquisition and breast tomosynthesis. Read with the assistance of CAD. .[facility] - [employer] Doping Supervisor Version 9.2 LIMITATIONS: None. FINDINGS: BREAST LATERALITY: left No suspicious masses, suspicious calcifications or architectural distortion. No areas of concern. IMPRESSION: NEGATIVE MAMMOGRAM. BIRADS 1. BREAST DENSITY: b. There are scattered areas of fibroglandular density. BIRAD: ASSESSMENT: 1 Negative RECOMMENDATION: RECOMMENDATION: ROUTINE SCREENING. COMMENT: The patient has been notified of the results by letter per MQSA requirements. Additional no tification policies are in place for contacting patient with suspicious or incomplete findings. Quality ID #225: The [employer] recommends an annual screening mammogram for women aged 40 years or over. This facility utilizes a reminder system to ensure that all patients receive reminder letters, and/or direct phone calls for appointments. This includes reminders for routine scr eening mammograms, diagnostic mammograms, or other Breast Imaging Interventions when appropriate. Th is patient will be placed in the appropriate reminder system. TECHNICAL DOCUMENTATION: FINDING NUMBER: (1) ASSESSMENT: (1) JOB ID: [id number] 2010 [employer]- All Rights Reserved Reading location - IP/workstation name: [email or web address]
== END ==
LOC: WI 07:40
PROVIDERS: ATTEND Internal Medicine
DX: Z12.31 Encounter for screening mammogram for malignant neoplasm of breast (principal)

== ENCOUNTER 2020-01-03 03:14 | Observation (INO) | payer OTHER ==
[2020-01-03 03:49] LABS: ABSOLUTE BASOPHILS # (AUTO) 0.1 10^3/uL (0.0-0.2); ABSOLUTE EOSINOPHILS # (AUTO) 0.3 10^3/uL (0.0-0.6); ABSOLUTE MONOCYTES (AUTO) 0.7 10^3/uL (0.1-1.4); ABSOLUTE NEUT (AUTO) 3.2 10^3/uL (1.7-8.2); BASOPHILS % (AUTO) 0.8 % (0-2); EOSINOPHILS % (AUTO) 4.7 % (0-6); HEMATOCRIT 42.7 % (36.0-47.0); HEMOGLOBIN 14.6 g/dL (12.0-15.5); LYMPHOCYTES % (AUTO) 40.8 % (13-45); MEAN CORPUSCULAR HEMOGLOBIN 32.3 pg (27.0-33.4); MEAN CORPUSCULAR HGB CONC 34.3 g/dL (32.0-36.0); MEAN CORPUSCULAR VOLUME 94 fl (80-97); MONOCYTES % (AUTO) 9.4 % (3-13); PLATELET COUNT 205 10^3/uL (150-450); RED BLOOD COUNT 4.52 10^6/uL (3.72-5.28); RED CELL DISTRIBUTION WIDTH 13.8 % (11.5-14.0); SEGMENTED NEUTROPHILS % (AUTO) 44.3 % (42-78); TOTAL CELLS COUNTED % (AUTO) 100 %; WHITE BLOOD COUNT 7.2 10^3/uL (4.0-10.5)
[2020-01-03 04:10] LABS: ALBUMIN 4.2 g/dL (3.5-5.0); ALKALINE PHOSPHATASE 135 U/L (38-126); ANION GAP 9 (5-19); ASPARTATE AMINO TRANSFERASE 44 U/L (14-36); BILIRUBIN,DIRECT 0.3 mg/dL (0.0-0.4); BILIRUBIN,TOTAL 0.7 mg/dL (0.2-1.3); BLOOD UREA NITROGEN 15 mg/dL (7-20); CARBON DIOXIDE 25 mmol/L (22-30); CHLORIDE 107 mmol/L (98-107); CREATINE KINASE 61 U/L (30-135); GLUCOSE 329 mg/dL (75-110); POTASSIUM 3.7 mmol/L (3.6-5.0); TOTAL PROTEIN 6.5 g/dL (6.3-8.2)
[2020-01-03 04:21] LABS: CREATINE KINASE MB 0.39 ng/mL (<4.55)
[2020-01-03 04:22] LABS: TROPONIN I < 0.012 ng/mL
[2020-01-03] MEDS ORDERED: ASPIRIN 81 MG TABLET, CHEWABLE PO ONE (04:54)
--- NOTE | 2020-01-03 04:56 | ER Document Report ---
ED General - General Chief Complaint: Chest Pain Stated Complaint: CHEST PAIN Time Seen by Provider: 01/03/20 04:54 Primary Care Provider: JASMIN FOUNTAIN MD [ACTIVE STAFF] - Follow up as needed TRAVEL OUTSIDE OF THE [place] IN LAST 30 DAYS: No - HPI Notes: 64-year-old female presents with chest pain. Patient states that she awoke around 2 AM first with jaw pain, she states the left side of her jaw felt like it was about to bust. She then noticed that she was having some left-sided chest pressure. She then states that she had some tingling in her left arm, and then her left arm felt like weight. She denies any current dental issues, states she has dentures. Chest pain has continued since its onset, she denies any change with exertion. She has had chest pain in the past, however has never had associated jaw pain. She reports that she had a stress test about a year and a half ago. She denies history of [place], she does not have any stents. She does have A. fib and hypertension. She sees cardiology in [place]. - Related Data Allergies/Adverse Reactions: No Known Allergies Allergy (Verified 05/12/17 03:39) Past Medical History - General Information source: Patient - Social History Smoking Status: Never Smoker Chew tobacco use (# tins/day): No Frequency of alcohol use: None Drug Abuse: None Family History: Reviewed & Not Pertinent Patient has homicidal ideation: No - Past Medical History Cardiac Medical History: Reports: Hx Atrial Fibrillation, Hx Hypercholesterolemia, Hx Hypertension Pulmonary Medical History: Reports: Hx Asthma, Hx Bronchitis - 2 yrs ago, Hx Pneumonia - x2, last time 2009 Neurological Medical History: Reports: Hx Migraine, Hx Seizures - None for 3 yrs Endocrine Medical History: Reports: Hx Diabetes Mellitus Type 2 Renal/ Medical History: Denies: Hx Peritoneal Dialysis Psychiatric Medical History: Reports: Hx Depression Past Surgical History: Reports: Hx Breast Surgery - RIGHT, Hx Cardiac Catheterization, Hx Cholecystectomy, Hx Hysterectomy, Hx Orthopedic Surgery - NECK - Immunizations Immunizations up to date: Yes Hx Diphtheria, Pertussis, Tetanus Vaccination: Yes - Tetanus only 2009 Review of Systems - Review of Systems Constitutional: denies: Fever EENT: See HPI Cardiovascular: Chest pain Respiratory: denies: Short of breath Gastrointestinal: Nausea Genitourinary: No symptoms reported Musculoskeletal: No symptoms reported Skin: No symptoms reported Neurological/Psychological: Tingling Physical Exam - Vital signs Vitals: Temp 98.2 F 01/03/20 03:27 - General General appearance: Appears well, Alert In distress: None - HEENT Head: Normocephalic, Atraumatic Extraocular movements intact: Yes Pupils: PERRL Pharynx: Other - No erythema to inside of mouth, full range of motion of jaw Neck: Supple - Respiratory Chest status: Nontender Breath sounds: Normal - Cardiovascular Rhythm: Regular Heart sounds: Normal auscultation Pulses: Normal: Radial Normal capillary refill: Yes - Abdominal Tenderness: Nontender - Extremities General lower extremity: No: Edema - Neurological Neuro grossly intact: Yes Cognition: Normal Orientation: AAOx4 - Psychological Associated symptoms: Normal affect - Skin Skin Temperature: Warm Course - Re-evaluation Re-evalutation: 64-year-old female here with left-sided chest pressure, with radiation to her le ft jaw and arm. Has multiple risk factors for coronary artery disease, though denies being formally diagnosed with this. On exam she is well-appearing, does not appear to be in any distress, laying comfortably in bed. Heart is RRR, lungs are clear, she does not have any peripheral edema. Initial EKG is without ST segment elevation or marked depression. I am concerned for ACS with her, likely unstable angina, though an STEMI possibility as well. She has an elevated heart score of 6. Will give aspirin and nitro. Given how comfortable she appears, would not suspect or aortic dissection at this time. 01/03/20 05:40 Patient reporting some mild improvement following nitro. Will try morphine for additional pain control. Initial troponin is negative, however this was not 3 hours post onset of pain. 01/03/20 05:54 Given high concern for cardiac etiology of her symptoms today, I discussed with the hospitalist Dr. Johnson who will admit the patient for further work-up. I updated the patient, she continues to be well-appearing and is resting in bed. - Vital Signs Vital signs: Temp Pulse Resp BP Pulse Ox 98.2 F 13 113/65 94 01/03/20 03:27 01/03/20 06:00 01/03/20 05:46 01/03/20 06:00 - Laboratory Result Diagrams: 01/03/20 03:40 01/03/20 03:40 Laboratory results interpreted by me: 01/03/20 03:40 Glucose 329 H AST 44 H Alkaline Phosphatase 135 H - Diagnostic Test Radiology reviewed: Image reviewed, Reports reviewed - EKG Interpretation by Me Additional EKG results interpreted by me: EKG is interpreted by me, sinus rhythm with rate 84. Narrow QRS, QTC within normal limits. There is some T wave flattening in lead III. Overall no ST se gment elevation. Discharge - Discharge Clinical Impression: Chest pain with moderate risk of acute coronary syndrome Disposition: ADMITTED INPATIENT Admitting Provider: Alex (Hospitalist) Unit Admitted: Telemetry Referrals: JASMIN FOUNTAIN MD [ACTIVE STAFF] - Follow up as needed
[2020-01-03] MEDS: NITROGLYCERIN 0.4 MG/TAB 25 TAB/BOTTLE SL PRN ×2 (05:12→05:19)
[2020-01-03] MEDS ORDERED: MORPHINE SULFATE 10 MG/ML INJ IV ONE (05:39)
--- NOTE | 2020-01-03 06:06 | RADIOLOGY REPORT (SQ) ---
CLINICAL HISTORY: chest pain COMPARISON: 05/12/2017. TECHNIQUE: XR CHEST 2 VIEWS 01/03/2020 5:06 AM CDT FINDINGS: Cardiac silhouette is normal in size. Lungs are clear without consolidation, atelectasis, mass or edema. There is no pleural effusion. There is no pneumothorax. There are no acute osseous findings. IMPRESSION: Clear lungs.
[2020-01-03] MEDS ORDERED: NITROGLYCERIN 0.4 MG/TAB 25 TAB/BOTTLE SL PRN (06:16)
[2020-01-03] MEDS ORDERED: GLUCAGON,HUMAN RECOMB 1 MG INJ IM PRN (06:18)
[2020-01-03] MEDS ORDERED: DEXTROSE 50%-WATER 25 GM/50 ML DISP.SYRIN IV PRN ×2 (06:18)
[2020-01-03] MEDS ORDERED: DEXTROSE 40% GEL 15 GM TUBE PO PRN ×4 (06:18→10:30)
[2020-01-03] MEDS ORDERED: HYDRALAZINE HCL INJ/PF 20 MG/1 ML SDV IV PRN (06:19)
[2020-01-03] MEDS ORDERED: METOPROLOL TARTRATE PF/INJ 5 MG/5 ML SDV IV PRN (06:19)
[2020-01-03] MEDS ORDERED: OXYCODONE-ACETAMINOPHEN 5-325 MG TABLET PO PRN (06:21)
[2020-01-03] MEDS ORDERED: ACETAMINOPHEN 325 MG TABLET PO PRN (06:21)
[2020-01-03] MEDS ORDERED: TEMAZEPAM 7.5 MG CAPSULE PO PRN (06:21)
[2020-01-03] MEDS ORDERED: NORMAL SALINE 1000 ML 1,000 ML IV PRN (06:21)
[2020-01-03] MEDS ORDERED: IPRATROPIUM/ALBUTEROL 0.5-2.5 MG/3 ML AMPUL NEB PRN (06:21)
[2020-01-03] MEDS ORDERED: PROMETHAZINE HCL INJ 25 MG/1 ML VIAL IV PRN (06:21)
[2020-01-03] MEDS ORDERED: ONDANSETRON HCL INJ/PF 4 MG/2 ML SDV IV PRN (06:21)
--- NOTE | 2020-01-03 06:37 | PDOC H&P ---
History of Present Illness Admission Date/PCP: 01/03/20 06:10 JOSHUA LOPEZ PA-C History of Present Illness: AUGUSTUS RANDALL is a 64 year old female Past medical history of atrial fibrillati on, not anticoagulated, followed by Dr. Farris renewable energy engineer, hypertension, hypercholesterolemia, nephrolithiasis, diabetes, history of "blackouts" undetermined cause currently followed by Dr. Farris renewable energy engineer and has had implantable loop recorder on 12/12/2019 and has had a stress test which was ne gative about 2 years ago, patient is presenting to ED with acute onset chest pain and left jaw pain. Patient is stating that she was woken up by left jaw pain at 2 AM this morning, noted to have pressure-like chest pain on the left side, with numbness and tingling of the left arm, jaw pain and chest pain continued until she was given nitroglycerin in ED which decreased her jaw and chest pain from 8/10 to 4/10, stating that she never has had this type of pain before, patient does not have a's history of CAD however has been followed by Dr. Farris renewable energy engineer for history of A. fib and blackouts patient has had implantable loop recorder placed on 12/12/2019 and has had negative stress test in the past. Patient denies any fever, chills, nausea, vomiting, diarrhea, constipation or any urinary symptoms. Past Medical History Cardiac Medical History: Reports: Atrial Fibrillation, Coronary Artery Disease - cholesterol, Hyperlipidema, Hypertension Pulmonary Medical History: Reports: Asthma, Bronchitis - 2 yrs ago, Pneumonia - x2, last time 2009 Neurological Medical History: Reports: Migraine, Seizures - None for 3 yrs Endocrine Medical History: Reports: Diabetes Mellitus Type 2 Musculoskeltal Medical History: Psychiatric Medical History: Reports: Depression Hematology: Reports: Anemia Past Surgical History Past Surgical History: Reports: Cardiac Catheterization, Cholecystectomy, H ysterectomy, Orthopedic Surgery - NECK Social History Smoking Status: Never Smoker Electronic Cigarette use?: No Frequency of Alcohol Use: None Hx Recreational Drug Use: No Hx Prescription Drug Abuse: No Family History Family History: Reviewed & Not Pertinent Parental Family History Reviewed: Yes Children Family History Reviewed: Yes Sibling(s) Family History Reviewed.: Yes Medication/Allergy Home Medications: Alprazolam [Xanax 0.5 mg Tablet] 1 mg PO TID 01/11/12 Zolpidem Tartrate [Ambien 10 mg Tablet] 20 mg PO QHS PRN 01/11/12 Liraglutide [Victoza 2-Scott] 1.8 mg IN DAILY 08/09/15 Glipizide 5 mg PO DAILY #30 tablet 12/26/16 Ciprofloxacin HCl [Cipro 500 mg Tablet] 500 mg PO BID #20 tablet 05/12/17 Metoclopramide HCl [Reglan] 5 mg PO Q6 #30 tablet 05/12/17 Metronidazole [Flagyl 500 mg Tablet] 500 mg PO TID #30 tablet 05/12/17 Tramadol HCl [Ultram 50 mg Tablet] 50 mg PO ASDIR PRN #20 tablet 05/12/17 Allergies/Adverse Reactions: No Known Allergies Allergy (Verified 05/12/17 03:39) Review of Systems Review of Systems: as per hpi Physical Exam Vital Signs: Temp Pulse Resp BP Pulse Ox 98.2 F 14 117/73 96 01/03/20 03:27 01/03/20 06:01 01/03/20 06:01 01/03/20 06:01 Intake & Output 01/01/20 01/02/20 01/03/20 06:59 06:59 06:59 Weight 80.286 kg General appearance: PRESENT: no acute distress, obese, well-developed, well- nourished Head exam: PRESENT: atraumatic, normocephalic Respiratory exam: PRESENT: clear to auscultation elly. ABSENT: rales, rhonchi, wheezes Cardiovascular exam: PRESENT: RRR. ABSENT: diastolic murmur, rubs, systolic murmur Pulses: PRESENT: normal dorsalis pedis pul GI/Abdominal exam: PRESENT: normal bowel sounds, soft. ABSENT: distended, guarding, mass, organolmegaly, rebound, tenderness Neurological exam: PRESENT: alert, awake, oriented to person, oriented to place, oriented to time, oriented to situation, CN II-XII grossly intact. ABSENT: motor sensory deficit Results Laboratory Results: 01/03/20 03:40 01/03/20 03:40 01/03/20 01/03/20 03:40 03:40 WBC 7.2 RBC 4.52 Hgb 14.6 Hct 42.7 MCV 94 MCH 32.3 MCHC 34.3 RDW 13.8 Plt Count 205 Seg Neutrophils % 44.3 Sodium 140.9 Potassium 3.7 Chloride 107 Carbon Dioxide 25 Anion Gap 9 BUN 15 Creatinine 0.83 Est GFR ( Amer) > 60 Glucose 329 H Calcium 9.0 Total Bilirubin 0.7 AST 44 H Alkaline Phosphatase 135 H Total Protein 6.5 Albumin 4.2 01/03/20 01/03/20 03:40 03:40 Creatine Kinase 61 CK-MB (CK-2) 0.39 Troponin I < 0.012 Impressions: Chest X-Ray 01/03/20 05:06 IMPRESSION: Clear lungs. Assessment and Plan - Diagnosis (1) Chest pain Is this a current diagnosis for this admission?: Yes Plan: Typical chest pain, relieved with nitroglycerin, significant risk factors such as hypertension, diabetes and hypercholesterolemia. EKG no acute abnormalities, initial troponin negative, chest pain started at 2 AM on 01/03/2020. Relieved with nitroglycerin. Has had negative stress test in the last 3 years. Admit to telemetry, trend troponins, antiplatelets, beta-blockers, ZUNILDA, nitroglycerin, morphine, supplemental oxygen, anticoagulation, consult cardiology, possible stress test for further risk stratification. (2) Atrial fibrillation Qualifiers: Atrial fibrillation type: permanent Qualified Code(s): I48.21 - Permanent atrial fibrillation Is this a current diagnosis for this admission?: Yes Plan: History of chronic A. fib, not anticoagulated. Currently sinus rhythm. Not anticoagulated, patient seen by cardiology Dr. Farris as outpatient. Patient does not know why she is not on chronic anticoagulation. Patient encouraged to discuss chronic anticoagulation with her renewable energy engineer. Admit to telemetry, PRN beta-blockers, Lovenox, cardiology consulted. (3) Blackout spell Is this a current diagnosis for this admission?: Yes Plan: Patient stated that she has been having history of blackouts for several years, no cause has been identified, patient is followed by cardiology Dr. Farris as outpatient. Patient had implantable loop recorder placed on left-sided chest on 12/12/2019. Admit to telemetry, fall and seizure precautions, outpatient PCP and cardiology follow-up. (4) Hypertension Qualifiers: Hypertension type: essential hypertension Qualified Code(s): I10 - Essential (primary) hypertension Is this a current diagnosis for this admission?: Yes Plan: Euvolemic. Normotensive. Resume home meds. Adjust meds as needed. (5) Diabetes Qualifiers: Diabetes mellitus type: type 2 Is this a current diagnosis for this admission?: Yes Plan: On oral hypoglycemic as outpatient. Diabetic diet, sliding scale insulin, basal insulin, Accu-Chek, hypoglycemia protocol. The home is upon discharge. Outpatient PCP follow-up. We will obtain hemoglobin A1c. (6) Hypercholesterolemia Is this a current diagnosis for this admission?: Yes Plan: Resume statins. Outpatient PCP follow-up. Diet and lifestyle modification recommended. - Time Time Spent with patient: 35 or more minutes Medications reviewed and adjusted accordingly: Yes Anticipated Discharge Disposition: Home, Self Care Anticipated Discharge Timeframe: within 72 hours
[2020-01-03] MEDS: INSULIN LISPRO 100 UNIT/ML 3 ML VIAL SUBCUT SCH ×2 (08:27→12:43)
[2020-01-03] MEDS ORDERED: DOCUSATE SODIUM 100 MG CAPSULE PO SCH (10:00)
[2020-01-03] MEDS ORDERED: CHOLECALCIFEROL (D3) 1,000 UNIT (25 MCG) TABLET PO SCH (10:00)
[2020-01-03] MEDS ORDERED: GABAPENTIN 300 MG CAPSULE PO SCH (10:00)
[2020-01-03] MEDS ORDERED: HYDROCHLOROTHIAZIDE 12.5 MG TABLET PO SCH (10:00)
[2020-01-03] MEDS ORDERED: (PENDING PHARMACY ID) (Aripiprazole [Aripiprazole] 10 MG) PO SCH (10:00)
[2020-01-03] MEDS ORDERED: GLIMEPIRIDE 4 MG TABLET PO SCH (10:00)
[2020-01-03] MEDS ORDERED: METOPROLOL SUCCINATE 50 MG TAB.SR.24H PO SCH (10:00)
[2020-01-03] MEDS ORDERED: FAMOTIDINE 20 MG TABLET PO SCH (10:00)
[2020-01-03] MEDS ORDERED: VENLAFAXINE HCL 75 MG CAP.SR.24H PO SCH (10:00)
[2020-01-03] MEDS ORDERED: LISINOPRIL 5 MG TABLET PO SCH (10:00)
[2020-01-03] MEDS ORDERED: ENOXAPARIN SODIUM INJ 80 MG/0.8 ML DISP.SYRIN SUBCUT SCH ×2 (10:00)
[2020-01-03] MEDS ORDERED: ALPRAZOLAM 0.5 MG TABLET PO SCH (10:00)
[2020-01-03] MEDS ORDERED: INSULIN GLARGINE,HUM.REC.ANLOG 1,000 UNIT/10 ML VIAL SUBCUT SCH (10:00)
[2020-01-03] MEDS ORDERED: LISINOPRIL 10 MG TABLET PO SCH (10:00)
[2020-01-03] MEDS ORDERED: HUM INSULIN NPH/REG INSULIN HM 100 UNIT/1 ML 3 ML SUBCUT SCH ×2 (10:30→16:00)
[2020-01-03] MEDS ORDERED: LEVOTHYROXINE SODIUM 0.075 MG TABLET PO SCH (11:00)
[2020-01-03] MEDS ORDERED: FLUTICASONE/VILANTEROL 100-25 MCG/DOSE IH SCH (11:00)
[2020-01-03] MEDS ORDERED: TOPIRAMATE 100 MG TABLET PO SCH (11:00)
--- NOTE | 2020-01-03 12:10 | PDOC DISCHARGE SUMMARY ---
Impression - Admit/DC Date/PCP Admission Date/Primary Care Provider: 01/03/20 06:10 JOSHUA LOPEZ PA-C Discharge Date: 01/03/20 - Discharge Diagnosis (1) Chest pain Is this a current diagnosis for this admission?: Yes (2) Atrial fibrillation Is this a current diagnosis for this admission?: Yes (3) Blackout spell Is this a current diagnosis for this admission?: Yes (4) Diabetes Is this a current diagnosis for this admission?: Yes (5) Hypertension Is this a current diagnosis for this admission?: Yes - Additional Information Discharge Diet: As Tolerated Discharge Activity: Activity As Tolerated Referrals: MARIO HOPKINS JR, MD [NO LOCAL MD] - Prescriptions: Nitroglycerin [Nitrostat 0.4 mg (1/150 Gr) Tabs 25/Bottle] 1 tab SL Q5MP PRN #1 bottle PRN Reason: Home Medications: Alprazolam [Xanax 0.5 mg Tablet] 1 mg PO DAILY 01/11/12 Aripiprazole 10 mg PO DAILY 01/03/20 Aspirin [Ecotrin 81 mg EC Tablet] 81 mg PO DAILY 01/03/20 Cholecalciferol (Vitamin D3) [Vitamin D3 1000 Unit Tablet] 1,000 unit PO DAILY 01/03/20 Dapagliflozin Propanediol [Farxiga] 10 mg PO DAILY 01/03/20 Dulaglutide [Trulicity] 1.5 mg SQ Q7D 01/03/20 Erenumab-Aooe [Aimovig Autoinjector] 140 mg SQ .MONTHLY 01/03/20 Fluticasone/Vilanterol [Breo Ellipta 100-25 Mcg INH] 1 each IH DAILY 01/03/20 Gabapentin [Neurontin 300 mg Capsule] 900 mg PO DAILY 01/03/20 Glimepiride [Amaryl 4 mg Tablet] 4 mg PO BID 01/03/20 Insulin NPH Hum/Reg Insulin Hm [Novolin 70-30 Flexpen] 15 unit SQ QPM 01/03/20 Insulin NPH Hum/Reg Insulin Hm [Novolin 70-30 Flexpen] 20 unit SQ QAM 01/03/20 Levothyroxine Sodium [Synthroid 0.075 mg Tablet] 0.075 mg PO QAM 01/03/20 Lisinopril/Hydrochlorothiazide [Lisinopril-Hctz 20-12.5 mg Tab] 1 each PO DAILY 01/03/20 Metoprolol Succinate [Toprol Xl 50 mg Tab.sr] 50 mg PO DAILY 01/03/20 Montelukast Sodium [Singulair 10 mg Tablet] 10 mg PO QHS 01/03/20 Nitroglycerin [Nitrostat 0.4 mg (1/150 Gr) Tabs 25/Bottle] 1 tab SL Q5MP PRN #1 bottle 01/03/20 Quetiapine Fumarate [Seroquel] 50 mg PO QPM 01/03/20 Rosuvastatin Calcium 5 mg PO DAILY 01/03/20 Topiramate [Trokendi Xr] 200 mg PO QPM 01/03/20 Venlafaxine HCl ER [Effexor Xr 75 mg Cap.sr] 225 mg PO DAILY 01/03/20 Vit A/Vit C/Vit E/Zinc/Copper [Preservision Areds Tablet] 2 each PO DAILY 01/03/20 Zolpidem Tartrate [Ambien Cr] 12.5 mg PO QHS 01/03/20 History of Present Illiness History of Present Illness: According to admitting provider: AUGUSTUS RANDALL is a 64 year old female Past m edical history of atrial fibrillation, not anticoagulated, followed by Dr. Farris print journalist, hypertension, hypercholesterolemia, nephrolithiasis, diabetes, history of "blackouts" undetermined cause currently followed by Dr. Farris print journalist and has had implantable loop recorder on 12/12/2019 and has had a stress test which was negative about 2 years ago, patient is presenting to ED with acute onset chest pain and left jaw pain. Patient is stating that she was woken up by left jaw pain at 2 AM this morning, noted to have pressure-like chest pain on the left side, with numbness and tingling of the left arm, jaw pain and chest pain continued until she was given nitroglycerin in ED which decreased her jaw and chest pain from 8/10 to 4/10, stating that she never has had this type of pain before, patient does not have a's history of CAD however has been followed by Dr. Farris print journalist for history of A. fib and blackouts patient has had implantable loop recorder placed on 12/12/2019 and has had negative stress test in the past. Patient denies any fever, chills, nausea, vomiting, diarrhea, constipation or any urinary symptoms. Hospital Course Hospital Course: Patient today states that she experienced some relief with nitroglycerin which brought the pain down from an 8 to a 4 out of 10. Today she states that the pain is minimal and is about 3/10. She endorses that she has been worked up for syncopal episodes/episodes of loss of consciousness as outpatient by her print journalist Dr. Hopkins. She has not had any of such syncopal episodes for the past 6 months according to her. I will defer to work-up for her syncopal episodes to her primary print journalist who is already doing this. Regarding her chest pain, her EKG is normal. Her troponins have also been negative x3. I did speak with Dr. Cool and subsequently I called her primary print journalist office and spoke to the on-call print journalist at Dr. Kerns's office who reviewed her recent records and informed me that she had a normal echo in October 2019, had a normal nuclear stress test in April 2019 and also no arrhythmias have been noted on her loop recorder with the exception of a few episodes of sinus bradycardia in the 40s. He recommends having patient follow-up in the office for a coronary CTA to investigate for coronary calcification and states that this is sensitive for detecting CAD. This procedure will be done at Dr. Morales's office and they will contact patient to make the soonest appointment available. I will discharge patient with Rx of nitroglycerin to be used as needed until she can have her follow-up appointment. Physical Exam Vital Signs: Temp Pulse Resp BP Pulse Ox 98.2 F 78 16 123/67 98 01/03/20 08:02 01/03/20 08:02 01/03/20 08:02 01/03/20 08:02 01/03/20 08:02 Intake & Output 01/02/20 01/03/20 01/04/20 06:59 06:59 06:59 Weight 80.286 kg General appearance: PRESENT: no acute distress, cooperative Neck exam: ABSENT: JVD Respiratory exam: PRESENT: clear to auscultation elly, symmetrical, unlabored. ABSENT: tachypnea, wheezes Cardiovascular exam: PRESENT: RRR, +S1, +S2. ABSENT: tachycardia GI/Abdominal exam: PRESENT: soft. ABSENT: rebound, rigid, tenderness Extremities exam: ABSENT: calf tenderness, pedal edema Neurological exam: PRESENT: alert, awake, oriented to person, oriented to place, oriented to time Results Laboratory Results: WBC 7.2 10^3/uL (4.0-10.5) 01/03/20 03:40 RBC 4.52 10^6/uL (3.72-5.28) 01/03/20 03:40 Hgb 14.6 g/dL (12.0-15.5) 01/03/20 03:40 Hct 42.7 % (36.0-47.0) 01/03/20 03:40 MCV 94 fl (80-97) 01/03/20 03:40 MCH 32.3 pg (27.0-33.4) 01/03/20 03:40 MCHC 34.3 g/dL (32.0-36.0) 01/03/20 03:40 RDW 13.8 % (11.5-14.0) 01/03/20 03:40 Plt Count 205 10^3/uL (150-450) 01/03/20 03:40 Lymph % (Auto) 40.8 % (13-45) 01/03/20 03:40 Griggs % (Auto) 9.4 % (3-13) 01/03/20 03:40 Eos % (Auto) 4.7 % (0-6) 01/03/20 03:40 Baso % (Auto) 0.8 % (0-2) 01/03/20 03:40 Absolute Neuts (auto) 3.2 10^3/uL (1.7-8.2) 01/03/20 03:40 Absolute Lymphs (auto) 3.0 10^3/uL (0.5-4.7) 01/03/20 03:40 Absolute Monos (auto) 0.7 10^3/uL (0.1-1.4) 01/03/20 03:40 Absolute Eos (auto) 0.3 10^3/uL (0.0-0.6) 01/03/20 03:40 Absolute Basos (auto) 0.1 10^3/uL (0.0-0.2) 01/03/20 03:40 Seg Neutrophils % 44.3 % (42-78) 01/03/20 03:40 Sodium 140.9 mmol/L (137-145) 01/03/20 03:40 Potassium 3.7 mmol/L (3.6-5.0) 01/03/20 03:40 Chloride 107 mmol/L (98-107) 01/03/20 03:40 Carbon Dioxide 25 mmol/L (22-30) 01/03/20 03:40 Anion Gap 9 (5-19) 01/03/20 03:40 BUN 15 mg/dL (7-20) 01/03/20 03:40 Creatinine 0.83 mg/dL (0.52-1.25) 01/03/20 03:40 Est GFR ( Amer) > 60 (>60) 01/03/20 03:40 Est GFR (MDRD) Non-Af > 60 (>60) 01/03/20 03:40 Glucose 329 mg/dL (75-110) H 01/03/20 03:40 POC Glucose 209 mg/dL (70-110) H 01/03/20 07:40 Calcium 9.0 mg/dL (8.4-10.2) 01/03/20 03:40 Total Bilirubin 0.7 mg/dL (0.2-1.3) 01/03/20 03:40 Direct Bilirubin 0.3 mg/dL (0.0-0.4) 01/03/20 03:40 Neonat Total Bilirubin Not Reportable 01/03/20 03:40 Neonat Direct Bilirubin Not Reportable 01/03/20 03:40 Neonat Indirect Bili Not Reportable 01/03/20 03:40 AST 44 U/L (14-36) H 01/03/20 03:40 ALT 32 U/L (<35) 01/03/20 03:40 Alkaline Phosphatase 135 U/L (38-126) H 01/03/20 03:40 Creatine Kinase 61 U/L (30-135) 01/03/20 03:40 CK-MB (CK-2) 0.39 ng/mL (<4.55) 01/03/20 03:40 Troponin I < 0.012 ng/mL 01/03/20 09:45 Total Protein 6.5 g/dL (6.3-8.2) 01/03/20 03:40 Albumin 4.2 g/dL (3.5-5.0) 01/03/20 03:40 01/03/20 01/03/20 01/03/20 03:40 06:40 09:45 CK-MB (CK-2) 0.39 Troponin I < 0.012 < 0.012 < 0.012 Impressions: Chest X-Ray 01/03/20 05:06 IMPRESSION: Clear lungs. Plan Time Spent: Greater than 30 Minutes Stroke Is this a Stroke Patient?: No Acute Heart Failure Is this a Heart Failure Patient?: No
[2020-01-03 13:22] VITALS: BP 117/49
--- NOTE | 2020-01-03 14:44 | EKG REPORT ---
SEVERITY:- ABNORMAL ECG - SINUS RHYTHM LEFT VENTRICULAR HYPERTROPHY : Confirmed by: Elo Beckham MD 03-Jan-2020 14:43:46
[2020-01-03] MEDS ORDERED: QUETIAPINE FUMARATE 25 MG TABLET PO SCH (18:00)
[2020-01-03] MEDS ORDERED: ATORVASTATIN CALCIUM 40 MG TABLET PO SCH ×2 (22:00)
[2020-01-03] MEDS ORDERED: MONTELUKAST SODIUM 10 MG TABLET PO SCH (22:00)
[2020-01-03] MEDS ORDERED: ZOLPIDEM TARTRATE 5 MG TABLET PO SCH (22:00)
[2020-01-04] MEDS ORDERED: ASPIRIN 81 MG TABLET, CHEWABLE PO SCH (10:00)
== END 2020-01-03 13:30 | disposition home or self-care (01) ==
LOC: ER 03:14 → EH 06:10 → INTOOBSV 06:10 → 5 07:09
PROVIDERS: ADMIT Internal Medicine; ATTEND Internal Medicine
DX: R07.89 Other chest pain (principal); I48.21 Permanent atrial fibrillation; R55 Syncope and collapse; E11.9 Type 2 diabetes mellitus without complications; I10 Essential (primary) hypertension; E78.00 Pure hypercholesterolemia, unspecified; R68.84 Jaw pain; R20.0 Anesthesia of skin; R20.2 Paresthesia of skin; R11.0 Nausea; R06.02 Shortness of breath; E66.9 Obesity, unspecified; J45.909 Unspecified asthma, uncomplicated; Z79.899 Other long term (current) drug therapy; Z79.82 Long term (current) use of aspirin; Z79.84 Long term (current) use of oral hypoglycemic drugs; Z95.818 Presence of other cardiac implants and grafts
CPT/HCPCS: 93005; 99285; 96374; 36415; 82553; 82962; 82550; 85025; 80053; 84484; 71046; 93010; G0378 ×2; J1815; J2270; J3490; J1650

== ENCOUNTER 2020-01-19 10:28 | Emergency (ER) | payer OTHER ==
--- NOTE | 2020-01-19 11:07 | ER Document Report ---
ED Medical Screen (RME) - General Stated Complaint: CHEST PAIN Time Seen by Provider: 01/19/20 11:05 Primary Care Provider: JOSHUA LOPEZ PA-C [Primary Care Provider] - Follow up as needed Notes: Patient presents with chest pain started yesterday. Patient complains of chest tightness with left arm heaviness. Patient had a recent loop recorder inserted. Patient was supposed to have a heart catheterization next week. Patient reports nausea with shortness of breath. Patient did take nitroglycerin at home. Patient has a history of hypertension, seizures and diabetes. I have greeted and performed a rapid initial assessment of this patient. A comprehensive ED assessment and evaluation of the patient, analysis of test results and completion of the medical decision making process will be conducted by additional ED providers. TRAVEL OUTSIDE OF THE [place] IN LAST 30 DAYS: No - Related Data Allergies/Adverse Reactions: No Known Allergies Allergy (Verified 05/12/17 03:39) Past Medical History - Social History Family history: Reviewed & Not Pertinent - Past Medical History Cardiac Medical History: Reports: Hx Atrial Fibrillation, Hx Coronary Artery Disease - cholesterol, Hx Hypercholesterolemia, Hx Hypertension Pulmonary Medical History: Reports: Hx Asthma, Hx Bronchitis - 2 yrs ago, Hx Pneumonia - x2, last time 2009 Neurological Medical History: Reports: Hx Migraine, Hx Seizures - None for 3 yrs Endocrine Medical History: Reports: Hx Diabetes Mellitus Type 2 Renal/ Medical History: Denies: Hx Peritoneal Dialysis Musculoskeltal Medical History: Psychiatric Medical History: Reports: Hx Depression Past Surgical History: Reports: Hx Breast Surgery - RIGHT, Hx Cardiac Catheterization, Hx Cholecystectomy, Hx Hysterectomy, Hx Orthopedic Surgery - NECK - Immunizations Immunizations up to date: Yes Hx Diphtheria, Pertussis, Tetanus Vaccination: Yes - Tetanus only 2009 Physical Exam - Vital signs Vitals: Temp Pulse Resp BP Pulse Ox 98.6 F 83 18 163/83 H 97 01/19/20 10:51 01/19/20 10:51 01/19/20 10:51 01/19/20 10:51 01/19/20 10:51 - Cardiovascular Rhythm: Regular Heart sounds: S1 appreciated, S2 appreciated Course - Vital Signs Vital signs: Temp Pulse Resp BP Pulse Ox 98.6 F 83 18 163/83 H 97 01/19/20 10:51 01/19/20 10:51 01/19/20 10:51 01/19/20 10:51 01/19/20 10:51 Doctor's Discharge - Discharge Referrals: JOSHUA LOPEZ PA-C [Primary Care Provider] - Follow up as needed
[2020-01-19 11:54] LABS: ABSOLUTE BASOPHILS # (AUTO) 0.1 10^3/uL (0.0-0.2); ABSOLUTE EOSINOPHILS # (AUTO) 0.2 10^3/uL (0.0-0.6); ABSOLUTE MONOCYTES (AUTO) 0.5 10^3/uL (0.1-1.4); ABSOLUTE NEUT (AUTO) 3.3 10^3/uL (1.7-8.2); BASOPHILS % (AUTO) 1.1 % (0-2); EOSINOPHILS % (AUTO) 3.3 % (0-6); HEMATOCRIT 40.6 % (36.0-47.0); HEMOGLOBIN 13.9 g/dL (12.0-15.5); LYMPHOCYTES % (AUTO) 33.5 % (13-45); MEAN CORPUSCULAR HGB CONC 34.2 g/dL (32.0-36.0); MEAN CORPUSCULAR VOLUME 94 fl (80-97); MONOCYTES % (AUTO) 7.4 % (3-13); PLATELET COUNT 211 10^3/uL (150-450); RED BLOOD COUNT 4.34 10^6/uL (3.72-5.28); RED CELL DISTRIBUTION WIDTH 13.5 % (11.5-14.0); SEGMENTED NEUTROPHILS % (AUTO) 54.7 % (42-78); TOTAL CELLS COUNTED % (AUTO) 100 %; WHITE BLOOD COUNT 6.1 10^3/uL (4.0-10.5)
--- NOTE | 2020-01-19 12:02 | RADIOLOGY REPORT (SQ) ---
EXAM DESCRIPTION: CHEST SINGLE VIEW IMAGES COMPLETED DATE/TIME: 01/19/2020 11:20 am REASON FOR STUDY: cp COMPARISON: 01/03/2020 TECHNIQUE: Single frontal radiographic view of the chest acquired. NUMBER OF VIEWS: One view. LIMITATIONS: None. FINDINGS: LUNGS AND PLEURA: No pneumothorax. No consolidation or pleural effusion. MEDIASTINUM AND HILAR STRUCTURES: Stable. HEART AND VASCULAR STRUCTURES: Stable. BONES: No acute findings. HARDWARE: etl bi developer. OTHER: No other significant finding. IMPRESSION: NO ACUTE FINDINGS. TECHNICAL DOCUMENTATION: JOB ID: [id number] 2010 [email or web address]™- All Rights Reserved Reading location - IP/workstation name: [email or web address])
[2020-01-19 12:27] LABS: ALBUMIN 4.2 g/dL (3.5-5.0); ALKALINE PHOSPHATASE 171 U/L (38-126); ANION GAP 11 (5-19); ASPARTATE AMINO TRANSFERASE 48 U/L (14-36); BILIRUBIN,DIRECT 0.3 mg/dL (0.0-0.4); BILIRUBIN,TOTAL 0.4 mg/dL (0.2-1.3); BLOOD UREA NITROGEN 9 mg/dL (7-20); CALCIUM 8.8 mg/dL (8.4-10.2); CARBON DIOXIDE 23 mmol/L (22-30); CHLORIDE 105 mmol/L (98-107); GLUCOSE 364 mg/dL (75-110); POTASSIUM 3.9 mmol/L (3.6-5.0); TOTAL PROTEIN 6.7 g/dL (6.3-8.2)
[2020-01-19] MEDS ORDERED: KETOROLAC TROMETHAMINE INJ/PF 30 MG/1 ML SDV IV ONE (12:34)
--- NOTE | 2020-01-19 13:08 | ER Document Report ---
Entered by STACEY WELCH SCRIBE 01/19/20 1230 Acting as scribe for:BENJAMIN KULKARNI MD ED General - General Chief Complaint: Chest Tightness Stated Complaint: CHEST PAIN Time Seen by Provider: 01/19/20 11:05 Primary Care Provider: JOSHUA LOPEZ PA-C [Primary Care Provider] - Follow up as needed Mode of Arrival: Ambulatory Information source: Patient Notes: This 64 year old female patient presents to the emergency department today with complaints of chest pressure which began last night at around 11:00 PM just before bed and it was minimally relieved with NTG. Patient reports that it "felt like a ton of bricks" was sitting on her chest and her "left arm went heavy". She reports that she was recently started on isosorbide and was scheduled for a cardiac catheterization next week. She had a negative stress test in April of 2019. TRAVEL OUTSIDE OF THE [place] IN LAST 30 DAYS: No - Related Data Allergies/Adverse Reactions: No Known Allergies Allergy (Verified 01/19/20 11:16) Home Medications: GLIPREMIRIDE, FARIXGA, LISINOPRIL, ISORSOBRIDE, METOPROLOL, NITRO Past Medical History - General Information source: Patient - Social History Smoking Status: Never Smoker Cigarette use (# per day): No Chew tobacco use (# tins/day): No Frequency of alcohol use: None Drug Abuse: None Occupation: retired Lives with: Family Family History: Reviewed & Not Pertinent Patient has homicidal ideation: No - Past Medical History Cardiac Medical History: Reports: Hx Atrial Fibrillation - Aspirin, Hx Coronary Artery Disease - cholesterol, Hx Hypercholesterolemia, Hx Hypertension Pulmonary Medical History: Reports: Hx Asthma, Hx Bronchitis - 2 yrs ago, Hx Pneumonia - x2, last time 2009 Neurological Medical History: Reports: Hx Migraine, Hx Seizures - None for 3 yrs Endocrine Medical History: Reports: Hx Diabetes Mellitus Type 2 Musculoskeletal Medical History: Psychiatric Medical History: Reports: Hx Depression Past Surgical History: Reports: Hx Breast Surgery - RIGHT, Hx Cardiac Catheterization - 2006, Hx Cholecystectomy, Hx Hysterectomy, Hx Orthopedic Surgery - CERVICAL FUSION - Immunizations Immunizations up to date: Yes Hx Diphtheria, Pertussis, Tetanus Vaccination: Yes - Tetanus only 2009 Review of Systems - Review of Systems Constitutional: No symptoms reported EENT: No symptoms reported Cardiovascular: See HPI, Chest pain Respiratory: No symptoms reported Gastrointestinal: No symptoms reported Genitourinary: No symptoms reported Female Genitourinary: No symptoms reported Musculoskeletal: No symptoms reported Skin: No symptoms reported Hematologic/Lymphatic: No symptoms reported Neurological/Psychological: No symptoms reported -: Yes All other systems reviewed and negative Physical Exam - Vital signs Vitals: Temp Pulse Resp BP Pulse Ox 98.6 F 83 18 163/83 H 97 01/19/20 10:51 01/19/20 10:51 01/19/20 10:51 01/19/20 10:51 01/19/20 10:51 - Notes Notes: Physical Exam: General: Alert, appears well. HEENT: Normocephalic. Atraumatic. PERRL. Extraocular movements intact. Oropharynx clear. Neck: Supple. Non-tender. Respiratory: No respiratory distress. Clear and equal breath sounds bilaterally. Anterior chest wall tenderness to palpation. During lung auscultation, deep breathing causes increased discomfort in the chest. Cardiovascular: Regular rate and rhythm. Abdominal: Normal Inspection. Non-tender. No distension. Normal Bowel Sounds. Back: No gross abnormalities. Extremities: Moves all four extremities. Upper extremities: Normal inspection. Normal ROM. Lower extremities: Normal inspection. No edema. Normal ROM. Neurological: Normal cognition. AAOx4. Normal speech. Psychological: Normal affect. Normal Mood. Skin: Warm. Dry. Normal color. Course - Re-evaluation Re-evalutation: 01/19/20 15:11 Serial troponins are undetectable. - Vital Signs Vital signs: Temp Pulse Resp BP Pulse Ox 98.6 F 83 22 H 155/88 H 98 01/19/20 11:17 01/19/20 10:51 01/19/20 14:01 01/19/20 14:00 01/19/20 14:01 - Laboratory Result Diagrams: 01/19/20 11:34 01/19/20 11:34 Laboratory results interpreted by me: 01/19/20 11:34 Glucose 364 H AST 48 H Alkaline Phosphatase 171 H - Diagnostic Test Radiology reviewed: Image reviewed, Reports reviewed - Chest x-ray does not show acute cardiopulmonary findings. - EKG Interpretation by [facility] EKG shows normal: Sinus rhythm, [place], Intervals, QRS Complexes, ST-T Waves Rate: Normal - 95 Rhythm: NSR Voltage: Consistent with LVH When compared to previous EKG there are: No significant change Discharge - Discharge Clinical Impression: Chest wall pain Hyperglycemia due to type 2 diabetes mellitus Qualifiers: Diabetes mellitus salvage determiner insulin use: unspecified salvage determiner insulin use status Qualified Code(s): E11.65 - Type 2 diabetes mellitus with hyperglycemia Condition: Stable Disposition: HOME, SELF-CARE Additional Instructions: Chest Wall Pain Your chest pain has been diagnosed as coming from the chest wall. This is often caused by straining the muscles or joints in the chest during physical activity, direct trauma, coughing, or vigorous vomiting. Persons with arthritis are especially prone to this type of pain, due to inflammation of the cartilage joints near the breast bone. Occasionally, no cause can be found. Rest from strenuous physical activity. This kind of chest pain is usually made worse by movement of the chest. Depending on the symptoms, we may prescribe medicine for pain, muscle relaxation, and antiinflammatory effects. If the pain is new, and seems to be due to muscle strain, cold packs can help. Otherwise, apply gentle warmth to the painful area for 15 minutes every hour or two. You should contact the doctor immediately if things change. Further evaluation is needed if you develop a fever or cough, if the nature of the pain changes, or if you become short of breath. Your chest x-ray and EKG did not show any acute changes. Serial troponins were undetectable. Your lab work was unremarkable except for an elevated blood sugar. Be sure you check your blood sugars regularly. Continue your regular medications. Follow-up with your textile screen printer as planned. RETURN TO THE EMERGENCY ROOM IF ANY NEW OR WORSENING SYMPTOMS. Referrals: JOSHUA LOPEZ PA-C [Primary Care Provider] - Follow up as needed I personally performed the services described in the documentation, reviewed and edited the documentation which was dictated to the scribe in my presence, and it accurately records my words and actions.
[2020-01-19] MEDS ORDERED: ONDANSETRON HCL INJ/PF 4 MG/2 ML SDV IV ONE (13:13)
[2020-01-19 15:41] VITALS: BP 155/82
--- NOTE | 2020-01-20 01:01 | EKG REPORT ---
SEVERITY:- ABNORMAL ECG - SINUS RHYTHM PROBABLE LVH WITH SECONDARY REPOL ABNRM ANTERIOR Q WAVES, POSSIBLY DUE TO LVH : Confirmed by: Elo Beckham MD 20-Jan-2020 01:00:50
== END 2020-01-19 16:11 | disposition home or self-care (01) ==
LOC: ER 10:28
DX: R07.89 Other chest pain (principal); E11.65 Type 2 diabetes mellitus with hyperglycemia; I48.91 Unspecified atrial fibrillation; E78.00 Pure hypercholesterolemia, unspecified; I10 Essential (primary) hypertension; Z90.49 Acquired absence of other specified parts of digestive tract; Z79.82 Long term (current) use of aspirin; Z98.1 Arthrodesis status
CPT/HCPCS: 93005; 99285; 96374; 96375; 36415; 83735; 85025; 80053; 84484; 71045; 93010; J1885; J2405

== ENCOUNTER 2020-01-31 18:31 | Observation (INO) | payer OTHER ==
--- NOTE | 2020-01-31 19:03 | ER Document Report ---
ED Medical Screen (RME) - General Chief Complaint: Chest Pain Stated Complaint: CHEST PAIN Time Seen by Provider: 01/31/20 18:53 Primary Care Provider: JOSHUA LOPEZ PA-C [Primary Care Provider] - Follow up as needed Information source: Patient Notes: Patient presents complaining of chest pain that started at 10 AM this morning. Patient had a heart catheterization last week and was diagnosed with 2 blockages. Patient states that there trying to treat her blockages with medicine at this time. Patient reports some nausea with mild shortness of breath. Patient was given nitroglycerin and her pain improved mostly although did not completely resolve. Patient has a history of diabetes, dyslipidemia and CAD. I have greeted and performed a rapid initial assessment of this patient. A comprehensive ED assessment and evaluation of the patient, analysis of test results and completion of the medical decision making process will be conducted by additional ED providers. TRAVEL OUTSIDE OF THE [place] IN LAST 30 DAYS: No - Related Data Allergies/Adverse Reactions: No Known Allergies Allergy (Verified 01/19/20 11:16) Past Medical History - Social History Family history: Reviewed & Not Pertinent - Past Medical History Cardiac Medical History: Reports: Hx Atrial Fibrillation - Aspirin, Hx Coronary Artery Disease - cholesterol, Hx Hypercholesterolemia, Hx Hypertension Pulmonary Medical History: Reports: Hx Asthma, Hx Bronchitis - 2 yrs ago, Hx Pneumonia - x2, last time 2009 Neurological Medical History: Reports: Hx Migraine, Hx Seizures - None for 3 yrs Endocrine Medical History: Reports: Hx Diabetes Mellitus Type 2 Renal/ Medical History: Denies: Hx Peritoneal Dialysis Musculoskeltal Medical History: Psychiatric Medical History: Reports: Hx Depression Past Surgical History: Reports: Hx Breast Surgery - RIGHT, Hx Cardiac Catheterization - 2005, Hx Cholecystectomy, Hx Hysterectomy, Hx Orthopedic Surgery - CERVICAL FUSION - Immunizations Immunizations up to date: Yes Hx Diphtheria, Pertussis, Tetanus Vaccination: Yes - Tetanus only 2009 Physical Exam - Vital signs Vitals: Temp Pulse Resp BP Pulse Ox 98.1 F 77 16 155/79 H 97 01/31/20 18:46 01/31/20 18:46 01/31/20 18:46 01/31/20 18:46 01/31/20 18:46 - Cardiovascular Rhythm: Regular Heart sounds: S1 appreciated, S2 appreciated Course - Vital Signs Vital signs: Temp Pulse Resp BP Pulse Ox 98.1 F 77 16 155/79 H 97 01/31/20 18:46 01/31/20 18:46 01/31/20 18:46 01/31/20 18:46 01/31/20 18:46 - Laboratory Result Diagrams: 01/31/20 18:15 01/31/20 18:15 Doctor's Discharge - Discharge Referrals: JOSHUA LOPEZ PA-C [Primary Care Provider] - Follow up as needed
[2020-01-31 19:04] LABS: ABSOLUTE BASOPHILS # (AUTO) 0.1 10^3/uL (0.0-0.2); ABSOLUTE EOSINOPHILS # (AUTO) 0.2 10^3/uL (0.0-0.6); ABSOLUTE LYMPHOCYTES (AUTO) 3.1 10^3/uL (0.5-4.7); ABSOLUTE MONOCYTES (AUTO) 0.6 10^3/uL (0.1-1.4); ABSOLUTE NEUT (AUTO) 4.4 10^3/uL (1.7-8.2); BASOPHILS % (AUTO) 0.9 % (0-2); EOSINOPHILS % (AUTO) 2.5 % (0-6); HEMATOCRIT 41.7 % (36.0-47.0); HEMOGLOBIN 14.6 g/dL (12.0-15.5); LYMPHOCYTES % (AUTO) 36.4 % (13-45); MEAN CORPUSCULAR HEMOGLOBIN 32.4 pg (27.0-33.4); MEAN CORPUSCULAR VOLUME 92 fl (80-97); PLATELET COUNT 230 10^3/uL (150-450); RED BLOOD COUNT 4.51 10^6/uL (3.72-5.28); RED CELL DISTRIBUTION WIDTH 13.4 % (11.5-14.0); SEGMENTED NEUTROPHILS % (AUTO) 53.2 % (42-78); TOTAL CELLS COUNTED % (AUTO) 100 %; WHITE BLOOD COUNT 8.4 10^3/uL (4.0-10.5)
[2020-01-31 19:10] LABS: ALBUMIN 4.5 g/dL (3.5-5.0); ALKALINE PHOSPHATASE 132 U/L (38-126); ANION GAP 13 (5-19); ASPARTATE AMINO TRANSFERASE 57 U/L (14-36); BILIRUBIN,DIRECT 0.3 mg/dL (0.0-0.4); BILIRUBIN,TOTAL 0.5 mg/dL (0.2-1.3); BLOOD UREA NITROGEN 19 mg/dL (7-20); CALCIUM 9.3 mg/dL (8.4-10.2); CARBON DIOXIDE 23 mmol/L (22-30); CHLORIDE 106 mmol/L (98-107); CREATINE KINASE 42 U/L (30-135); GLUCOSE 193 mg/dL (75-110); POTASSIUM 3.8 mmol/L (3.6-5.0); TOTAL PROTEIN 7.3 g/dL (6.3-8.2)
[2020-01-31 19:29] LABS: CREATINE KINASE MB < 0.22 ng/mL (<4.55); TROPONIN I < 0.012 ng/mL
--- NOTE | 2020-01-31 19:36 | RADIOLOGY REPORT (SQ) ---
EXAM DESCRIPTION: CHEST 2 VIEWS IMAGES COMPLETED DATE/TIME: 01/31/2020 7:29 pm REASON FOR STUDY: chest pain COMPARISON: 01/19/2020 EXAM PARAMETERS: NUMBER OF VIEWS: two views TECHNIQUE: Digital Frontal and Lateral radiographic views of the chest acquired. RADIATION DOSE: NA LIMITATIONS: none FINDINGS: LUNGS AND PLEURA: No opacities, masses or pneumothorax. No pleural effusion. MEDIASTINUM AND HILAR STRUCTURES: No masses or contour abnormalities. HEART AND VASCULAR STRUCTURES: Heart normal size. No evidence for failure. BONES: No acute findings. HARDWARE: Loop recorder. OTHER: No other significant finding. IMPRESSION: NO ACUTE RADIOGRAPHIC FINDING IN THE CHEST. TECHNICAL DOCUMENTATION: JOB ID: [id number] 2010 [employer]- All Rights Reserved Reading location - IP/workstation name: [email or web address]
--- NOTE | 2020-01-31 20:22 | ER Document Report ---
ED Cardiac - General Chief Complaint: Chest Pain Stated Complaint: CHEST PAIN Time Seen by Provider: 01/31/20 18:53 Primary Care Provider: JOSHUA LOPEZ PA-C [Primary Care Provider] - Follow up as needed Mode of Arrival: Medic Information source: Patient Notes: 01/31/20 18:52 - ED Nursing Note by JOEFOUZIAEDILBERTO Howard Num: [id number] : 1955 Patient Age: 64 Pt presents to ED via EMS to triage with c/c of chest tightness. The pt reports it is 3/5. Pt also reports mild nausea. Pt had a cardiac cath on 01/24 in [place]. She had 2 blockages. Treating with medication. No stents placed. Pt was sent to ED from [facility]. The pt was given 325 of aspirin. EMS administered "2 puffs" of nitro. This helped with her chest tightness. Pt is aox4. Resps e/u. ED Medical Screen (Shashank notes) - General Chief Complaint: Chest Pain Stated Complaint: CHEST PAIN Time Seen by Provider: 01/31/20 18:53 Primary Care Provider: JOSHUA LOPEZ PA-C [Primary Care Provider] - Follow up as needed Information source: Patient Notes: Patient presents complaining of chest pain that started at 10 AM this morning. Patient had a heart catheterization last week and was diagnosed with 2 blockages. Patient states that there trying to treat her blockages with medicine at this time. Patient reports some nausea with mild shortness of breath. Patient was given nitroglycerin and her pain improved mostly although did not completely resolve. Patient has a history of diabetes, dyslipidemia and CAD. MY NOTES 64-year-old female with known history of CAD anxiety hypertension diabetes hypercholesterolemia atrial fibrillation advises she began to have anterior chest pain with nausea that began around 1000 hrs. and progressed until 4 PM. Patient went to [facility] and was given aspirin and sent to the ER. Patient was given nitroglycerin in route and her chest pain resolved but over the last 1 hour the chest pain as progressed to 5-6/10. Patient's medications include Seroquel and nitro glycerin Singulair Toprol lisinopril HCTZ Synthroid Effexor.Patient recently last week had a heart catheterization in [place] per Dr. Powell that revealed a blockage less than 50% in 2 spots and advised patient to be treated medically. Dr. Castillo is her chief of police. She is accompanied by her at this time. I discussed his case with Dr. Jeffrey Alva and he advises second troponin and IV nitroglycerin and transferring this patient to [place]. Patient is IDDM on insulin Trulicity and glipizide. TRAVEL OUTSIDE OF THE [place] IN LAST 30 DAYS: No - Related Data Allergies/Adverse Reactions: No Known Allergies Allergy (Verified 01/19/20 11:16) Past Medical History - General Information source: Patient - Social History Smoking Status: Current Every Day Smoker Family History: Reviewed & Not Pertinent - Past Medical History Cardiac Medical History: Reports: Hx Atrial Fibrillation - Aspirin, Hx Coronary Artery Disease - cholesterol, Hx Hypercholesterolemia, Hx Hypertension Pulmonary Medical History: Reports: Hx Asthma, Hx Bronchitis - 2 yrs ago, Hx Pneumonia - x2, last time 2009 Neurological Medical History: Reports: Hx Migraine, Hx Seizures - None for 3 yrs Endocrine Medical History: Reports: Hx Diabetes Mellitus Type 2 Renal/ Medical History: Denies: Hx Peritoneal Dialysis Musculoskeletal Medical History: Psychiatric Medical History: Reports: Hx Depression Past Surgical History: Reports: Hx Appendectomy, Hx Breast Surgery - RIGHT, Hx Cardiac Catheterization - 2006, Hx Cholecystectomy, Hx Hysterectomy, Hx Orth opedic Surgery - CERVICAL FUSION - Immunizations Immunizations up to date: Yes Hx Diphtheria, Pertussis, Tetanus Vaccination: Yes - Tetanus only 2009 Review of Systems - Review of Systems Constitutional: No symptoms reported EENT: No symptoms reported Cardiovascular: No symptoms reported, See HPI, Chest pain Respiratory: No symptoms reported Gastrointestinal: No symptoms reported Genitourinary: No symptoms reported Female Genitourinary: No symptoms reported Musculoskeletal: No symptoms reported Skin: No symptoms reported Hematologic/Lymphatic: No symptoms reported Neurological/Psychological: No symptoms reported Physical Exam - Vital signs Vitals: Temp Pulse Resp BP Pulse Ox 98.1 F 77 16 155/79 H 97 01/31/20 18:46 01/31/20 18:46 01/31/20 18:46 01/31/20 18:46 01/31/20 18:46 Interpretation: Normal - General General appearance: Appears well, Alert - HEENT Head: Normocephalic, Atraumatic Eyes: Normal Pupils: PERRL - Respiratory Respiratory status: No respiratory distress Chest status: Nontender Breath sounds: Normal Chest palpation: Normal - Cardiovascular Rhythm: Regular Heart sounds: Normal auscultation Murmur: No - Abdominal Inspection: Normal Distension: No distension Bowel sounds: Normal Tenderness: Nontender Organomegaly: No organomegaly - Rectal Hemorrhoids: Other - deferred - Genitourinary Bimanuel exam: Other - deferred - Back Back: Normal, Nontender - Extremities General upper extremity: Normal inspection, Nontender, Normal color, Normal ROM, Normal temperature General lower extremity: Normal inspection, Nontender, Normal color, Normal ROM, Normal temperature, Normal weight bearing. No: Hima's sign - Neurological Neuro grossly intact: Yes Cognition: Normal Orientation: AAOx4 Mason Coma Scale Eye Opening: Spontaneous Satnam Coma Scale Verbal: Oriented Satnam Coma Scale Motor: Obeys Commands Mason Coma Scale Total: 15 Speech: Normal Motor strength normal: LUE, RUE, LLE, RLE Sensory: Normal - Psychological Associated symptoms: Normal affect, Normal mood - Skin Skin Temperature: Warm Skin Moisture: Dry Skin Color: Normal Course - Vital Signs Vital signs: Temp Pulse Resp BP Pulse Ox 98.1 F 77 16 136/61 H 97 01/31/20 18:46 01/31/20 18:46 01/31/20 22:46 01/31/20 22:46 01/31/20 22:46 - Laboratory Result Diagrams: 01/31/20 18:15 01/31/20 18:15 Laboratory results interpreted by me: 01/31/20 02/01/20 18:15 00:15 Glucose 193 H POC Glucose 122 H AST 57 H Alkaline Phosphatase 132 H - Diagnostic Test Radiology reviewed: Reports reviewed - EKG Interpretation by Me EKG shows normal: Sinus rhythm Rate: Normal Rhythm: NSR Critical Care Note - Critical Care Note Comments: I discussed case with Dr. Alva at 2039 and he advises repeat troponin nitroglycerin drip and send patient to [place] if chest pain continues. I spoke with Dr. Douglas Gomes at [facility] via the transfer center and he advises treating the patient for noncoronary sources. Evidently patient had a small 40% lesion at the LAD did not require a stent at that time. At this point I called back Dr. Marrero at 2213 and he advised admission at this point Toradol IV and also Carafate GI cocktail. I spoke with Dr. Charles at 2234 about admission and he saw patient in room for admission. Discharge - Discharge Clinical Impression: Angina at rest Condition: Stable Disposition: ADMITTED INPATIENT Admitting Provider: Isabel Mejia Unit Admitted: Telemetry Instructions: Angina Episode (OM) Referrals: JOSHUA LOPEZ PA-C [Primary Care Provider] - Follow up as needed
[2020-01-31] MEDS ORDERED: MORPHINE SULFATE 10 MG/ML INJ IV ONE (20:33)
[2020-01-31] MEDS ORDERED: ONDANSETRON HCL INJ/PF 4 MG/2 ML SDV IV ONE (20:33)
[2020-01-31] MEDS ORDERED: NORMAL SALINE 1000 ML 1,000 ML IV ONE (20:35)
[2020-01-31] MEDS ORDERED: NITROGLYCERIN/D5W 50 MG/250 ML RTUINJ IV PRN (20:45)
[2020-01-31] MEDS ORDERED: SUCRALFATE 1 GM TABLET PO ONE (22:17)
[2020-01-31] MEDS ORDERED: KETOROLAC TROMETHAMINE INJ/PF 30 MG/1 ML SDV IV ONE (22:17)
[2020-01-31] MEDS ORDERED: OXYCODONE-ACETAMINOPHEN 5-325 MG TABLET PO PRN (23:15)
[2020-01-31] MEDS ORDERED: ONDANSETRON HCL INJ/PF 4 MG/2 ML SDV IV PRN (23:15)
[2020-01-31] MEDS ORDERED: ASPIRIN 81 MG TABLET, CHEWABLE PO SCH (23:30)
[2020-01-31] MEDS ORDERED: ATORVASTATIN CALCIUM 40 MG TABLET PO SCH (23:30)
--- NOTE | 2020-01-31 23:30 | PDOC H&P ---
History of Present Illness Admission Date/PCP: JOSHUA LOPEZ PA-C 01/31/2020 Patient complains of: Chest pain History of Present Illness: AUGUSTUS RANDALL is a 64 year old female with a history of type 2 diabetes, seizure disorder, hypertension, migraine headache presented to ER after she started having a pressure type chest tightness which started around 10 AM this morning. She states that pain started while she was still lying on her bed and it gradually worsened over the afternoon. She rated the pain 10/10 intensity at its worst, nonradiating, with no significant association with exertion. She denies any fever, chills, cough, trauma. Patient states that she had heart cath done at [facility] 6 days back and she was told that there was minor blockage in one of her arteries which could be managed medically. Per ER physician, he had a discussion with the wheelchair van operator first responder at [facility] who did the procedure and was informed that there was 40% distal left LAD lesion. Initial labs done at the ER show normal troponin and EKG showed no new ST-T wave changes as compared to the one done 10 days ago. Past Medical History Cardiac Medical History: Reports: Atrial Fibrillation - Aspirin, Coronary Artery Disease - cholesterol, Hyperlipidema, Hypertension Pulmonary Medical History: Reports: Asthma, Bronchitis - 2 yrs ago, Pneumonia - x2, last time 2009 Neurological Medical History: Reports: Migraine, Seizures - None for 3 yrs Endocrine Medical History: Reports: Diabetes Mellitus Type 2 Musculoskeltal Medical History: Psychiatric Medical History: Reports: Depression Hematology: Reports: Anemia Past Surgical History Past Surgical History: Reports: Appendectomy, Cardiac Catheterization - 2005, Cholecystectomy, Hysterectomy, Orthopedic Surgery - CERVICAL FUSION Social History Information Source: Patient Lives with: Spouse/Significant other Smoking Status: Current Every Day Smoker Frequency of Alcohol Use: None Hx Recreational Drug Use: No Hx Prescription Drug Abuse: No - Advance Directive Resuscitation Status: Full Code Family History Family History: Reviewed & Not Pertinent Parental Family History Reviewed: Yes Children Family History Reviewed: Yes Sibling(s) Family History Reviewed.: Yes Medication/Allergy Home Medications: Alprazolam [Xanax 0.5 mg Tablet] 1 mg PO DAILY 01/11/12 Aripiprazole 10 mg PO DAILY 01/03/20 Aspirin [Ecotrin 81 mg EC Tablet] 81 mg PO DAILY 01/03/20 Cholecalciferol (Vitamin D3) [Vitamin D3 1000 Unit Tablet] 1,000 unit PO DAILY 01/03/20 Dapagliflozin Propanediol [Farxiga] 10 mg PO DAILY 01/03/20 Dulaglutide [Trulicity] 1.5 mg SQ WE@1000 01/03/20 Erenumab-Aooe [Aimovig Autoinjector] 140 mg SQ .MONTHLY 01/03/20 Fluticasone/Vilanterol [Breo Ellipta 100-25 Mcg INH] 1 each IH DAILY 01/03/20 Gabapentin [Neurontin 300 mg Capsule] 900 mg PO DAILY 01/03/20 Insulin NPH Hum/Reg Insulin Hm [Novolin 70-30 Flexpen] 15 unit SQ QPM 01/03/20 Insulin NPH Hum/Reg Insulin Hm [Novolin 70-30 Flexpen] 20 unit SQ QAM 01/03/20 Levothyroxine Sodium [Synthroid 0.075 mg Tablet] 0.075 mg PO Q6AM 01/03/20 Lisinopril/Hydrochlorothiazide [Lisinopril-Hctz 20-12.5 mg Tab] 1 each PO DAILY 01/03/20 Metoprolol Succinate [Toprol Xl 50 mg Tab.sr] 50 mg PO DAILY 01/03/20 Montelukast Sodium [Singulair 10 mg Tablet] 10 mg PO QHS 01/03/20 Nitroglycerin [Nitrostat 0.4 mg (1/150 Gr) Tabs 25/Bottle] 1 tab SL Q5MP PRN #1 bottle 01/03/20 Quetiapine Fumarate [Seroquel] 50 mg PO QPM 01/03/20 Rosuvastatin Calcium 5 mg PO DAILY 01/03/20 Topiramate [Trokendi Xr] 200 mg PO QPM 01/03/20 Venlafaxine HCl ER [Effexor Xr 75 mg Cap.sr] 225 mg PO DAILY 01/03/20 Vit A/Vit C/Vit E/Zinc/Copper [Preservision Areds Tablet] 2 each PO DAILY 01/03/20 Zolpidem Tartrate [Ambien Cr] 12.5 mg PO QHS 01/03/20 Butalb/Acetaminophen/Caffeine [Alkglv-Ouahxvyw-Dkni 50-300-40] 1 tab PO Q4HP PRN 02/01/20 Fluconazole [Diflucan] 150 mg PO ASDIR PRN 02/01/20 Isosorbide Mononitrate [Imdur 60 mg Tablet.er] 60 mg PO DAILY 02/01/20 Allergies/Adverse Reactions: No Known Allergies Allergy (Verified 01/19/20 11:16) Review of Systems Constitutional: ABSENT: chills, fever(s), headache(s), weight gain, weight loss Eyes: ABSENT: visual disturbances Ears: ABSENT: hearing changes Nose, Mouth, and Throat: ABSENT: headache(s), mouth pain, sore throat, vertigo Cardiovascular: PRESENT: as per HPI Respiratory: PRESENT: as per HPI Gastrointestinal: ABSENT: abdominal pain, constipation, diarrhea, hematemesis, hematochezia, nausea, vomiting Genitourinary: ABSENT: dysuria, hematuria Musculoskeletal: ABSENT: joint swelling Integumentary: ABSENT: rash, wounds Neurological: ABSENT: abnormal gait, abnormal speech, confusion, dizziness, focal weakness, syncope Psychiatric: ABSENT: anxiety, depression, homidical ideation, suicidal ideation Endocrine: ABSENT: cold intolerance, heat intolerance, polydipsia, polyuria Physical Exam Vital Signs: Temp Pulse Resp BP Pulse Ox 98.1 F 77 16 136/61 H 97 01/31/20 18:46 01/31/20 18:46 01/31/20 22:46 01/31/20 22:46 01/31/20 22:46 Intake & Output 01/30/20 01/31/20 02/01/20 06:59 06:59 06:59 Intake Total 1005 Balance 1005 Weight 79.5 kg Exam: GENERAL APPEARANCE: Well-developed, well-nourished, in no acute distress. Alert and cooperative. HEENT: Normocephalic and atraumatic. No scleral icterus. PERRLA, EOMs are full, no conjunctival injection is noted. Oral mucosa is pink and moist with good dentition NECK: Supple. Trachea is midline. No evidence of thyroid enlargement. No lymphadenopathy or tenderness. No carotid bruit. No JVD CHEST: Symmetric. Has tenderness to palpation on the left anterior chest LUNGS: Breath sounds are equal and clear bilaterally. No wheezes, rhonchi, or rales. HEART: Regular rate and rhythm with normal S1 and S2. No murmurs, gallops, or rubs. ABDOMEN: Soft, flat, and benign. No mass, tenderness, guarding, or rebound. No organomegaly or hernia. Bowel sounds are present. No CVA tenderness or flank mass.. EXTREMITIES: No cyanosis, clubbing, or edema. MUSCULOSKELETAL: No deformity, atrophy or swelling noted PSYCHIATRIC: The patient is awake, alert, and oriented x3. Recent and remote memory is intact. Appropriate mood and affect. SKIN: Warm, dry, and well perfused. No lesions or rashes are noted. NEUROLOGIC: No focal sensory or motor deficits are noted. Cranial nerves II through XII are intact. Additional comments: GENERAL APPEARANCE: Well-developed, well-nourished, in no acute distress HEENT: Normocephalic and atraumatic. No scleral icterus. PERRLA, EOM intact, moist oral mucosa NECK: Supple. Trachea is midline. No evidence of thyroid enlargement. No ly mphadenopathy or tenderness. No carotid bruit. No JVD CHEST: Symmetric. Nontender to palpation. LUNGS: Breath sounds are equal and clear bilaterally. No wheezes, rhonchi, or rales. HEART: Irregularly irregular rhythm, normal rate, with normal S1 and S2. No murmurs, gallops, or rubs. ABDOMEN: Soft, flat, and benign. No mass, tenderness, guarding, or rebound. No organomegaly. Bowel sounds are present. No CVA tenderness. EXTREMITIES: No cyanosis, clubbing, or edema. MUSCULOSKELETAL: No deformity, atrophy or swelling noted PSYCHIATRIC: The patient is awake, alert, and oriented x3. Recent and remote memory is intact. Appropriate mood and affect. SKIN: Warm, dry, and well perfused. No lesions or rashes are noted. NEUROLOGIC: No focal sensory or motor deficits are noted. Gait is normal. Cranial nerves II through XII are intact. Deep tendon reflexes are intact. Results Laboratory Results: 01/31/20 18:15 01/31/20 18:15 01/31/20 01/31/20 18:15 18:15 WBC 8.4 RBC 4.51 Hgb 14.6 Hct 41.7 MCV 92 MCH 32.4 MCHC 35.0 RDW 13.4 Plt Count 230 Seg Neutrophils % 53.2 Sodium 141.8 Potassium 3.8 Chloride 106 Carbon Dioxide 23 Anion Gap 13 BUN 19 Creatinine 0.74 Est GFR ( Amer) > 60 Glucose 193 H Calcium 9.3 Total Bilirubin 0.5 AST 57 H Alkaline Phosphatase 132 H Total Protein 7.3 Albumin 4.5 01/31/20 01/31/20 01/31/20 18:15 18:15 22:01 Creatine Kinase 42 CK-MB (CK-2) < 0.22 Troponin I < 0.012 < 0.012 Impressions: Chest X-Ray 01/31/20 00:00 IMPRESSION: NO ACUTE RADIOGRAPHIC FINDING IN THE CHEST. Assessment and Plan - Diagnosis (1) Chest pain, atypical Is this a current diagnosis for this admission?: Yes Plan: Chest pain is reproducible on physical exam Patient left heart cath a week ago which showed 40% distal LAD lesion and was discharged with medical management Cardiac enzymes trended and negative EKG showed A. fib with normal rhythm, no new ST-T wave changes were noted In the presence of recent reassuring cath and negative troponins., patient likely to be discharged in the morning with follow-up to PCP Continue aspirin, high intensity statin, metoprolol, lisinopril at current doses Nitroglycerin as needed (2) Diabetes Qualifiers: Diabetes mellitus type: type 2 Diabetes mellitus superintendent container terminal insulin use: with halfway use Is this a current diagnosis for this admission?: Yes Plan: Placed patient on sliding scale insulin Lantus 15 units nightly Accu-Chek, hypoglycemia protocol On diabetic diet (3) Hypercholesterolemia Is this a current diagnosis for this admission?: Yes Plan: Atorvastatin 40 mg p.o. daily (4) Hypertension Qualifiers: Hypertension type: essential hypertension Qualified Code(s): I10 - Essential (primary) hypertension Is this a current diagnosis for this admission?: Yes Plan: Blood pressure is well controlled Continue lisinopril/hydrochlorothiazide On low-salt diet (5) Atrial fibrillation Qualifiers: Atrial fibrillation type: permanent Qualified Code(s): I48.21 - Permanent atrial fibrillation Is this a current diagnosis for this admission?: Yes Plan: Currently rate is well controlled Due to persistent symptoms despite being rate controlled multiple cardioversions were attempted but unsuccessful Continue Eliquis, metoprolol for rate control (6) Hypothyroidism Qualifiers: Hypothyroidism type: unspecified Qualified Code(s): E03.9 - Hypothyroidism, unspecified Is this a current diagnosis for this admission?: Yes Plan: TSH on this presentation within the normal limits Continue levothyroxine at current dose - Time Time Spent with patient: 35 or more minutes Total Critical Time (Minutes): 35 Medications reviewed and adjusted accordingly: Yes Anticipated Discharge Disposition: Home, Self Care Anticipated Discharge Timeframe: within 48 hours - Inpatient Certification Medical Necessity: Need Close Monitoring Due to Risk of Patient Decompensation, Need For Continuous Telemetry Monitoring Post Hospital Care: D/C or Transfer Summary
[2020-01-31] MEDS ORDERED: METOPROLOL SUCCINATE 50 MG TAB.SR.24H PO ONE (23:38)
[2020-01-31] MEDS ORDERED: ATORVASTATIN CALCIUM 40 MG TABLET PO ONE (23:59)
[2020-01-31] MEDS ORDERED: ASPIRIN 81 MG TABLET, CHEWABLE PO ONE (23:59)
[2020-02-01] MEDS ORDERED: ZOLPIDEM TARTRATE 5 MG TABLET PO ONE ×2 (00:15)
[2020-02-01] MEDS ORDERED: QUETIAPINE FUMARATE 25 MG TABLET PO ONE ×2 (00:30→02:15)
[2020-02-01] MEDS: INSULIN REG, HUMAN 100 UNIT/ML 3 ML VIAL (PYX) SUBCUT SCH ×3 (00:48→08:28)
[2020-02-01] MEDS ORDERED: INSULIN GLARGINE,HUM.REC.ANLOG 1,000 UNIT/10 ML VIAL SUBCUT ONE ×2 (00:54→23:45)
[2020-02-01] MEDS ORDERED: MONTELUKAST SODIUM 10 MG TABLET PO ONE (01:00)
[2020-02-01] MEDS ORDERED: LEVOTHYROXINE SODIUM 0.075 MG TABLET PO SCH (08:00)
[2020-02-01] MEDS ORDERED: ENOXAPARIN SODIUM INJ 40 MG/0.4 ML DISP.SYRIN SUBCUT SCH (10:00)
[2020-02-01] MEDS ORDERED: LISINOPRIL 10 MG TABLET PO SCH (10:00)
[2020-02-01] MEDS ORDERED: HYDROCHLOROTHIAZIDE 12.5 MG TABLET PO SCH (10:00)
[2020-02-01] MEDS ORDERED: FLUTICASONE/VILANTEROL 100-25 MCG/DOSE IH SCH (10:00)
--- NOTE | 2020-02-01 11:08 | PDOC DISCHARGE SUMMARY ---
Impression - Admit/DC Date/PCP Admission Date/Primary Care Provider: 02/01/20 01:11 JOSHUA LOPEZ PA-C Discharge Date: 02/01/20 - Discharge Diagnosis (1) Chest pain, atypical Is this a current diagnosis for this admission?: Yes (2) Hypothyroidism Is this a current diagnosis for this admission?: Yes (3) Diabetes Is this a current diagnosis for this admission?: Yes (4) Hypercholesterolemia Is this a current diagnosis for this admission?: Yes (5) Hypertension Is this a current diagnosis for this admission?: Yes - Additional Information Resuscitation Status: Full Code Discharge Diet: Cardiac Discharge Activity: Activity As Tolerated Referrals: MARIO HOPKINS JR, MD [NO LOCAL MD] - JOSHUA LOPEZ PA-C [Primary Care Provider] - Follow up as needed Home Medications: Alprazolam [Xanax 0.5 mg Tablet] 1 mg PO DAILY 01/11/12 Aripiprazole 10 mg PO DAILY 01/03/20 Aspirin [Ecotrin 81 mg EC Tablet] 81 mg PO DAILY 01/03/20 Cholecalciferol (Vitamin D3) [Vitamin D3 1000 Unit Tablet] 1,000 unit PO DAILY 01/03/20 Dapagliflozin Propanediol [Farxiga] 10 mg PO DAILY 01/03/20 Dulaglutide [Trulicity] 1.5 mg SQ WE@1000 01/03/20 Erenumab-Aooe [Aimovig Autoinjector] 140 mg SQ .MONTHLY 01/03/20 Fluticasone/Vilanterol [Breo Ellipta 100-25 Mcg INH] 1 each IH DAILY 01/03/20 Gabapentin [Neurontin 300 mg Capsule] 900 mg PO DAILY 01/03/20 Insulin NPH Hum/Reg Insulin Hm [Novolin 70-30 Flexpen] 15 unit SQ QPM 01/03/20 Insulin NPH Hum/Reg Insulin Hm [Novolin 70-30 Flexpen] 20 unit SQ QAM 01/03/20 Levothyroxine Sodium [Synthroid 0.075 mg Tablet] 0.075 mg PO Q6AM 01/03/20 Lisinopril/Hydrochlorothiazide [Lisinopril-Hctz 20-12.5 mg Tab] 1 each PO DAILY 01/03/20 Metoprolol Succinate [Toprol Xl 50 mg Tab.sr] 50 mg PO DAILY 01/03/20 Montelukast Sodium [Singulair 10 mg Tablet] 10 mg PO QHS 01/03/20 Nitroglycerin [Nitrostat 0.4 mg (1/150 Gr) Tabs 25/Bottle] 1 tab SL Q5MP PRN #1 bottle 01/03/20 Quetiapine Fumarate [Seroquel] 50 mg PO QPM 01/03/20 Rosuvastatin Calcium 5 mg PO DAILY 01/03/20 Topiramate [Trokendi Xr] 200 mg PO QPM 01/03/20 Venlafaxine HCl ER [Effexor Xr 75 mg Cap.sr] 225 mg PO DAILY 01/03/20 Vit A/Vit C/Vit E/Zinc/Copper [Preservision Areds Tablet] 2 each PO DAILY 01/03/20 Zolpidem Tartrate [Ambien Cr] 12.5 mg PO QHS 01/03/20 Butalb/Acetaminophen/Caffeine [Snibgc-Ggttjrdx-Hybm 50-300-40] 1 tab PO Q4HP PRN 02/01/20 Fluconazole [Diflucan] 150 mg PO ASDIR PRN 02/01/20 Isosorbide Mononitrate [Imdur 60 mg Tablet.er] 60 mg PO DAILY 02/01/20 History of Present Illiness History of Present Illness: According to admitting provider: AUGUSTUS RANDALL is a 64 year old female with a history of type 2 diabetes, seizure disorder, hypertension, migraine headache presented to ER after she started having a pressure type chest tightness which started around 10 AM this morning. She states that pain started while she was still lying on her bed and it gradually worsened over the afternoon. She rated the pain 10/10 intensity at its worst, nonradiating, with no significant association with exertion. She denies any fever, chills, cough, trauma. Patient states that she had heart cath done at [facility] 6 days back and she was told that there was minor blockage in one of her arteries which could be managed medically. Per ER physician, he had a discussion with the auto claims adjuster at [facility] who did the procedure and was informed that there was 40% distal left LAD lesion. Initial labs done at the ER show normal troponin and EKG showed no new ST-T wave changes as compared to the one done 10 days ago. Hospital Course Hospital Course: Patient was admitted to the hospital for evaluation of chest pain. Notably patient had just had a left heart catheterization done at [facility] on 01/25/2020 and was told that she had less than 50% blockage in 2 vessels. ER physician had confirmed with Dr. Gomes at [facility].patient had left heart cath done a few days ago which showed nonobstructive disease with only 40% blockage in the LAD and as a result did not require any intervention or stenting and Dr. Gomes had advised to treat for noncardiac causes. Patient had chest x-ray done which was normal. Troponin was obtained 3 times which were all negative. Notably patient, on my assessment, complains of chest pain that is worse with movement especially movement of her limbs or picking up something heavy and also does have tenderness in the area. She says that the pain has subsided now but the area still feels sore on palpation. Chest pain is reproduced with flexion of the left shoulder against resistance. It is likely her chest pain is due to musculoskeletal etiology such as some muscle strain or from her sleeping position as she states she woke up with the pain. Patient advised to take some [id number] Tylenol and to follow-up with primary care doctor and auto claims adjuster for further care. Physical Exam Vital Signs: Temp Pulse Resp BP Pulse Ox 97.8 F 72 18 123/67 97 02/01/20 07:26 02/01/20 07:26 02/01/20 07:26 02/01/20 07:26 02/01/20 07:26 Intake & Output 01/31/20 02/01/20 02/02/20 06:59 06:59 06:59 Intake Total 1012 Output Total 0 Balance 1012 Weight 79.1 kg General appearance: PRESENT: no acute distress, cooperative Neck exam: ABSENT: JVD Respiratory exam: PRESENT: chest wall tenderness, clear to auscultation elly, unlabored. ABSENT: crackles, wheezes Cardiovascular exam: PRESENT: RRR, +S1, +S2. ABSENT: tachycardia GI/Abdominal exam: PRESENT: soft. ABSENT: rigid, tenderness Neurological exam: PRESENT: alert, awake, oriented to person, oriented to place, oriented to time, oriented to situation Results Laboratory Results: WBC 8.4 10^3/uL (4.0-10.5) 01/31/20 18:15 RBC 4.51 10^6/uL (3.72-5.28) 01/31/20 18:15 Hgb 14.6 g/dL (12.0-15.5) 01/31/20 18:15 Hct 41.7 % (36.0-47.0) 01/31/20 18:15 MCV 92 fl (80-97) 01/31/20 18:15 MCH 32.4 pg (27.0-33.4) 01/31/20 18:15 MCHC 35.0 g/dL (32.0-36.0) 01/31/20 18:15 RDW 13.4 % (11.5-14.0) 01/31/20 18:15 Plt Count 230 10^3/uL (150-450) 01/31/20 18:15 Lymph % (Auto) 36.4 % (13-45) 01/31/20 18:15 [place] % (Auto) 7.0 % (3-13) 01/31/20 18:15 Eos % (Auto) 2.5 % (0-6) 01/31/20 18:15 Baso % (Auto) 0.9 % (0-2) 01/31/20 18:15 Absolute Neuts (auto) 4.4 10^3/uL (1.7-8.2) 01/31/20 18:15 Absolute Lymphs (auto) 3.1 10^3/uL (0.5-4.7) 01/31/20 18:15 Absolute Monos (auto) 0.6 10^3/uL (0.1-1.4) 01/31/20 18:15 Absolute Eos (auto) 0.2 10^3/uL (0.0-0.6) 01/31/20 18:15 Absolute Basos (auto) 0.1 10^3/uL (0.0-0.2) 01/31/20 18:15 Seg Neutrophils % 53.2 % (42-78) 01/31/20 18:15 Sodium 141.8 mmol/L (137-145) 01/31/20 18:15 Potassium 3.8 mmol/L (3.6-5.0) 01/31/20 18:15 Chloride 106 mmol/L (98-107) 01/31/20 18:15 Carbon Dioxide 23 mmol/L (22-30) 01/31/20 18:15 Anion Gap 13 (5-19) 01/31/20 18:15 BUN 19 mg/dL (7-20) 01/31/20 18:15 Creatinine 0.74 mg/dL (0.52-1.25) 01/31/20 18:15 Est GFR ( Amer) > 60 (>60) 01/31/20 18:15 Est GFR (MDRD) Non-Af > 60 (>60) 01/31/20 18:15 Glucose 193 mg/dL (75-110) H 01/31/20 18:15 POC Glucose 122 mg/dL (70-110) H 02/01/20 00:15 Calcium 9.3 mg/dL (8.4-10.2) 01/31/20 18:15 Total Bilirubin 0.5 mg/dL (0.2-1.3) 01/31/20 18:15 Direct Bilirubin 0.3 mg/dL (0.0-0.4) 01/31/20 18:15 Neonat Total Bilirubin Not Reportable 01/31/20 18:15 Neonat Direct Bilirubin Not Reportable 01/31/20 18:15 Neonat Indirect Bili Not Reportable 01/31/20 18:15 AST 57 U/L (14-36) H 01/31/20 18:15 ALT 31 U/L (<35) 01/31/20 18:15 Alkaline Phosphatase 132 U/L (38-126) H 01/31/20 18:15 Creatine Kinase 42 U/L (30-135) 01/31/20 18:15 CK-MB (CK-2) < 0.22 ng/mL (<4.55) 01/31/20 18:15 Troponin I < 0.012 ng/mL 02/01/20 05:56 Total Protein 7.3 g/dL (6.3-8.2) 01/31/20 18:15 Albumin 4.5 g/dL (3.5-5.0) 01/31/20 18:15 01/31/20 01/31/20 02/01/20 18:15 22:01 05:56 CK-MB (CK-2) < 0.22 Troponin I < 0.012 < 0.012 < 0.012 Impressions: Chest X-Ray 01/31/20 00:00 IMPRESSION: NO ACUTE RADIOGRAPHIC FINDING IN THE CHEST. Plan Time Spent: Less than 30 Minutes Stroke Is this a Stroke Patient?: No Acute Heart Failure Is this a Heart Failure Patient?: No
[2020-02-01 11:13] VITALS: BP 139/75
[2020-02-01] MEDS ORDERED: QUETIAPINE FUMARATE 25 MG TABLET PO SCH (18:00)
[2020-02-01] MEDS ORDERED: TOPIRAMATE 100 MG TABLET PO SCH (18:00)
--- NOTE | 2020-02-01 18:03 | EKG REPORT ---
SEVERITY:- ABNORMAL ECG - SINUS RHYTHM CONSIDER ANTEROSEPTAL INFARCT : Confirmed by: Nima Drummond MD 01-Feb-2020 18:02:02
--- NOTE | 2020-02-01 18:03 | EKG REPORT ---
SEVERITY:- NORMAL ECG - SINUS RHYTHM : Confirmed by: Nima Drummond MD 01-Feb-2020 18:02:09
[2020-02-01] MEDS ORDERED: MONTELUKAST SODIUM 10 MG TABLET PO SCH (22:00)
[2020-02-01] MEDS ORDERED: INSULIN GLARGINE,HUM.REC.ANLOG 1,000 UNIT/10 ML VIAL SUBCUT SCH (22:00)
[2020-02-01] MEDS ORDERED: ZOLPIDEM TARTRATE 5 MG TABLET PO SCH (22:00)
== END 2020-02-01 11:38 | disposition home or self-care (01) ==
LOC: ER 18:31 → INTOOBSV 02-01 01:11 → EH 02-01 01:11 → 3S 02-01 02:54
PROVIDERS: ADMIT Student in an Organized Health Care Education/Training Program; ATTEND Internal Medicine
DX: R07.89 Other chest pain (principal); E03.9 Hypothyroidism, unspecified; E11.9 Type 2 diabetes mellitus without complications; E78.00 Pure hypercholesterolemia, unspecified; I10 Essential (primary) hypertension; I25.10 Atherosclerotic heart disease of native coronary artery without angina pectoris; I48.21 Permanent atrial fibrillation; R11.0 Nausea; R06.02 Shortness of breath; F41.9 Anxiety disorder, unspecified; F17.200 Nicotine dependence, unspecified, uncomplicated; Z79.899 Other long term (current) drug therapy; Z79.82 Long term (current) use of aspirin; Z79.4 Long term (current) use of insulin; Z79.890 Hormone replacement therapy; G43.909 Migraine, unspecified, not intractable, without status migrainosus; J45.909 Unspecified asthma, uncomplicated; Z86.69 Personal history of other diseases of the nervous system and sense organs
CPT/HCPCS: 93005 ×2; 99285; 96361; 96375; 96365; 96366 ×2; 36415 ×2; 82553; 82962; 82550; 85025; 80053; 84484 ×2; 71046; 93010 ×2; G0378 ×3; J1885; J2270; J1650; J1815; J2405 ×2; J3490 ×2; J7030